=== PATIENT | female | born 1950 | race Caucasian/White ===

== ENCOUNTER 2017-07-27 10:34 | Inpatient (IN) | payer OTHER, MEDICARE ==
[~2017-07-27] VITALS: Ht 170.2 cm; Wt 86.2 kg
[2017-07-27 11:20] LABS: ABSOLUTE BASOPHIL COUNT 0 /CUMM (0.0-0.2); ABSOLUTE EOSINOPHIL COUNT 0.2 /CUMM (0.0-0.7); ABSOLUTE GRANULOCYTE CT 3.7 /CUMM (1.4-6.5); ABSOLUTE LYMPH COUNT 1.8 /CUMM (1.2-3.4); ABSOLUTE MONOCYTE COUNT 0.5 /CUMM (0.10-0.60); BASOPHIL % 0.4 % (0.0-2.0); EOSINOPHIL % 2.6 % (0-5); GRANULOCYTE % 59.8 % (42.2-75.2); HEMATOCRIT 28.2 % (37-47); MEAN CORPUSCULAR HGB 29.5 PG (27.0-31.0); MEAN CORPUSCULAR HGB CONC 33.7 G/DL (33.0-37.0); MEAN CORPUSCULAR VOLUME 87.7 FL (81.0-99.0); MEAN PLATELET VOLUME 8.6 FL (7.4-10.4); PLATELET COUNT 390 /CUMM (130-400); RBC DISTRIBUTION WIDTH 13.2 % (11.5-14.5); RED BLOOD CELL CT 3.22 /CUMM (4.20-5.40); WHITE BLOOD CELL COUNT 6.1 /CUMM (4.8-10.8)
--- NOTE | 2017-07-27 12:43 | ED DYSPNEA/ASTHMA COMPLAINT ---
History of Present Illness General Chief Complaint: General Adult Stated Complaint: SOB/WEAKNESS Source: patient, family Exam Limitations: no limitations Vital Signs & Intake/Output Vital Signs & Intake/Output Vital Signs Date Time Temp Pulse Resp B/P B/P Pulse O2 O2 Flow FiO2 Mean Ox Delivery Rate 07/27 1244 98 Room Air 07/27 1103 97.8 118 20 121/80 98 Room Air Allergies Coded Allergies: epinephrine (Intermediate, HEART RACES 07/27/17) Reconcile Medications Lisinopril 40 MG TABLET 1 TAB PO DAILY HEART (Reported) Omeprazole Magnesium (Prilosec Otc) 20 MG TABLET.DR 1 TAB PO DAILY GERD ( Reported) Venlafaxine HCl (Venlafaxine HCl ER) 75 MG CAP.ER.24H 1 CAP PO DAILY MENTAL HEALTH (Reported) Triage Note: PT TO ER WITH COMPLAINTS OF SOB ON EXERTION, FEELING WEAK, SKIN COLOR PALE , PT ALSO STATES THAT SHE HAS BEEN HAVING A LOT OF GERD AND NOTED THAT HER STOOL IS BLACK AND TARRY. PT HAD BLOOD WORK AT [facility] LAST WEEK THAT SHOWED SHE WAS ANEMIC AND THEY ARE SUPOSSED TO SCHEDULE A GI APPOINTMENT. STATES THAT SHE JUST KEEPS GETTING WEAKER Triage Nurses Notes Reviewed? yes Onset: Abrupt Duration: week(s):, constant, continues in ED Timing: recent history Severity: moderate, severe Activities at Onset: none HPI: 67-year-old female comes into emergency room for further evaluation of shortness of breath. She reports that she's been feeling increasingly weak with shortness of breath that has been going on for the past few weeks. She denies any chest pain. Denies any cough or mucus production shortness of breath is worse with exertion and better at rest. She denies any vomiting. She denies any syncopal episodes.. (Jose David Rodriguez) Past History Travel History Traveled to [place] past 21 day No Medical History Any Pertinent Medical History? 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 No (Jose David Rodriguez) Review of Systems Review of Systems Constitutional: Reports: no symptoms. EENTM: Reports: no symptoms. Respiratory: Reports: see HPI. Cardiovascular: Reports: no symptoms. GI: Reports: see HPI. Genitourinary: Reports: no symptoms. Musculoskeletal: Reports: no symptoms. Skin: Reports: no symptoms. Neurological/Psychological: Reports: no symptoms. Hematologic/Endocrine: Reports: no symptoms. Immunologic/Allergic: Reports: no symptoms. All Other Systems: Reviewed and Negative (Jose David Rodriguez) Physical Exam Physical Exam General Appearance: well developed/nourished, no apparent distress, alert Head: atraumatic, normal appearance Eyes: Bilateral: normal appearance, EOMI. Ears, Nose, Throat: normal ENT inspection, hearing grossly normal Neck: normal inspection Respiratory: normal breath sounds, no respiratory distress Cardiovascular: regular rate/rhythm Gastrointestinal: soft Rectal: heme positive stool, NO GROSS BLOOD Extremities: normal inspection Neurologic/Psych: awake, alert, oriented x 3, normal gait Skin: intact, normal color Core Measures ACS in differential dx? Yes CVA/TIA Diagnosis No Sepsis Present: No Sepsis Focused Exam Completed? No (Jose David Rodriguez) Progress Differential Diagnosis: asthma, AMI, bronchitis, costochondritis, CHF, COPD, musculoskeletal pain, pericarditis, pulmonary embolism, pneumonia, pneumothorax, rib fracture, unstable angina Plan of Care: Orders Procedure Date/time Status Heart Healthy Diet 07/27 D Active ED Holding Orders 07/27 1459 Active Vital Signs 07/27 1459 Active Code Status 07/27 1459 Active Patient Data 07/27 1444 Active URINALYSIS 07/27 1411 Complete Add-on Test (ER Only) 07/27 1229 Active D-DIMER 07/27 1110 Complete TROPONIN LEVEL 07/27 1106 Complete COMPREHENSIVE METABOLIC PANEL 07/27 1106 Complete CBC WITHOUT DIFFERENTIAL 07/27 1106 Complete EKG 07/27 1037 Active Laboratory Tests 07/27/17 1422: Urine Color YEL, Urine Clarity CLEAR, Urine pH 6.0, Ur Specific [place] 1.015, Urine Protein NEG, Urine Ketones NEG, Urine Nitrite NEG, Urine Bilirubin NEG, Urine Urobilinogen 0.2, Ur Leukocyte Esterase NEG, Ur Microscopic EXAM NOT REQUIRED, Urine Hemoglobin NEG, Urine Glucose NEG 07/27/17 1110: Anion Gap 13, Estimated GFR > 60, BUN/Creatinine Ratio 30.0 H, Glucose 103 H, Calcium 9.6, Total Bilirubin 0.3, AST 37 H, ALT 63 H, Alkaline Phosphatase 75, Troponin I < 0.01, Total Protein 6.5, Albumin 4.0, Globulin 2.5, Albumin/ Globulin Ratio 1.6, D-Dimer High Sensitivty < 200, CBC w Diff NO MAN DIFF REQ, RBC 3.22 L, MCV 87.7, MCH 29.5, RDW 13.2, MPV 8.6, Gran % 59.8, Lymphocytes % 29.4, Monocytes % 7.8, Eosinophils % 2.6, Basophils % 0.4, Absolute Granulocytes 3.7, Absolute Lymphocytes 1.8, Absolute Monocytes 0.5, Absolute Eosinophils 0.2, Absolute Basophils 0, PUBS MCHC 33.7 Diagnostic Imaging: Viewed by Me: Radiology Read. Discussed w/RAD: Radiology Read. Radiology Impression: PATIENT: BRAD ANDERSON PRESENT AGE : 67 PATIENT ACCOUNT NO: [id number] : 50 LOCATION: [facility] ORDERING PHYSICIAN: Jose David SHAW SERVICE DATE: 07/27/171301 EXAM TYPE: RAD - XRY-CHEST XRAY, TWO VIEWS EXAMINATION: XR CHEST CLINICAL INFORMATION: Shortness of breath COMPARISON: None TECHNIQUE: 2 views of the chest were obtained. FINDINGS: Heart size is within normal range. The descending course of the thoracic aorta is mildly tortuous. No consolidation or effusion. The visualized osseous arches appear intact. IMPRESSION: No acute process. DICTATED BY: Zulema Rowe MD DATE/TIME DICTATED:07/27/171328 CONTACT LENS TECHNICIAN:JOANNA DATE/ TIME TRANSCRIBED:07/27/171328 CONFIDENTIAL, DO NOT COPY WITHOUT APPROPRIATE AUTHORIZATION. <Electronically signed in Other Vendor System> SIGNED BY: Zulema Rowe MD 07/27/17 1724 Initial ED EKG: normal sinus rhythm, rate (85), nonspecific ST T wave chg (Yobany SHAW,Jose David) Departure Departure Disposition: STILL A PATIENT Condition: Stable Clinical Impression Primary Impression: Symptomatic anemia Secondary Impressions: Angina of effort, GI bleed Referrals: Christine WOODWARD,Danial Benoit (PCP/Family) Departure Forms: Customer Survey General Discharge Information Observation Note Spoke With: Bhargav Baird MD Physician Advisor Notified: DWAIN NEALKASSIDYLENNIE [address] Patient In: Non-ED OBS Care Area Rationale for Observation: My rational for observation is as follows . Patient will require further evaluation with cardiac telemetry. Serial troponins. Patient has shortness of breath on exertion that could be possible anginal equivalent pain. Cardiac consultation. Patient also has some symptomatic anemia with a new drop in her H &H. She has a positive guaiac and exam and may be experiencing upper intermittent GI bleeding. (Jose David Rodriguez) PA/SUPERVISOR NET MAKING Co-Sign Statement Statement: ED Attending supervision documentation- [X] I saw and evaluated the patient. I have also reviewed all the pertinent lab results and diagnostic results. I agree with the findings and the plan of care as documented in the PA's/SUPERVISOR NET MAKING's documentation. [X] I have reviewed the ED Record and agree with the PA's/SUPERVISOR NET MAKING's documentation. [] Additions or exceptions (if any) to the PAs/SUPERVISOR NET MAKING's note and plan are summarized below: [] (Emiliano WOODWARD,Analilia) Critical Care Note Critical Care Note Critical Care Time: non-applicable (Jose David Rodriguez)
[2017-07-27] MEDS ORDERED: LISINOPRIL40 M1 PO (12:58)
[2017-07-27] MEDS ORDERED: PRILOSEC OTC20 M1 PO (12:59)
[2017-07-27] MEDS ORDERED: VENLAFAXINE HCL75 M1 PO (12:59)
--- NOTE | 2017-07-27 13:33 | RADIOLOGY REPORT ---
EXAMINATION: XR CHEST CLINICAL INFORMATION: Shortness of breath COMPARISON: None TECHNIQUE: 2 views of the chest were obtained. FINDINGS: Heart size is within normal range. The descending course of the thoracic aorta is mildly tortuous. No consolidation or effusion. The visualized osseous arches appear intact. IMPRESSION: No acute process.
--- NOTE | 2017-07-27 15:03 | History & Physical ---
Shaun WOODWARD,Feliberto 07/27/17 1502: General Information and HPI History of Present Illness: Ms. Wilson is a 67-year-old female with past medical history of hypertension who presents with fatigue and shortness of breath. The patient first noticed on that she was getting short of breath on exertion especially going up stairs. She had a recent blood work that showed that she was anemic. Yesterday, the she then started noticing her stools were black but there was no blood in them. Today she started feeling dizzy, decreased stamina, and palpitations that was only relieved by laying down. She called her primary care doctor who recommended she come to the ER for further evaluation. Otherwise, the patient notes that she has heartburn 2-3 times a week and takes ranitidine with relief. She also started taking omeprazole on Thursday. She has also had a recent SPEP or respiratory illness. She reports good appetite. Her last colonoscopy was in 2014 it was normal. She did have an endoscopy 10 years ago that showed gastritis. She did receive a flu vaccine this year. No chest pain, nausea, vomiting, diarrhea, dysuria, fever, chills, recent travel. She does not have any gluten issues. She has never smoked and drinks 10 drinks per week. She does not use any drugs. She has a history of esophageal cancer in her mom. Allergies/Medications Allergies: Coded Allergies: epinephrine (Intermediate, HEART RACES 07/27/17) Home Med list Lisinopril 40 MG TABLET 1 TAB PO DAILY HEART (Reported) Omeprazole Magnesium (Prilosec Otc) 20 MG TABLET.DR 1 TAB PO DAILY GERD ( Reported) Venlafaxine HCl (Venlafaxine HCl ER) 75 MG CAP.ER.24H 1 CAP PO DAILY MENTAL HEALTH (Reported) Past History Travel History Traveled to [place] past 21 day No Medical History Neurological: NONE EENT: NONE Cardiovascular: hypertension Respiratory: NONE Gastrointestinal: NONE Hepatic: NONE Renal: NONE Musculoskeletal: NONE Psychiatric: NONE Endocrine: NONE Blood Disorders: anemia Cancer(s): 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 EENTM: Reports: no symptoms. Cardiovascular: Reports: no symptoms. Respiratory: Reports: no symptoms. GI: Reports: see HPI. Genitourinary: Reports: no symptoms. Musculoskeletal: Reports: no symptoms. Skin: Reports: no symptoms. Neurological/Psychological: Reports: no symptoms. Hematologic/Endocrine: Reports: see HPI. Immunologic/Allergic: Reports: no symptoms. All Other Systems: Reviewed and Negative Exam & Diagnostic Data Last 24 Hrs of Vital Signs/I&O Vital Signs Date Time Temp Pulse Resp B/P B/P Pulse O2 O2 Flow FiO2 Mean Ox Delivery Rate 07/27 1556 98.7 87 20 101/60 98 Room Air 07/27 1530 98.7 87 20 101/60 98 Room Air 07/27 1244 98 Room Air 07/27 1103 97.8 118 20 121/80 98 Room Air Intake & Output 07/27 1600 07/27 0800 07/27 0000 Intake Total 0 Output Total Balance 0 Intake, Oral 0 Patient 190 lb Weight Physical Exam General Appearance Alert, Oriented X3, Cooperative, No Acute Distress Skin No Rashes, No Breakdown, No Significant Lesion HEENT Atraumatic, PERRLA, EOMI, no palor Neck Supple Cardiovascular Regular Rate, Normal S1, Normal S2 Lungs Clear to Auscultation, Normal Air Movement Abdomen Normal Bowel Sounds, Soft, No Tenderness, No Hepatospenomegaly Neurological Normal Speech Extremities No Edema, Normal Pulses, No Tenderness/Swelling Last 24 Hrs of Labs/Rolando: Laboratory Tests 07/27/17 1659: Troponin I Pending 07/27/17 1422: Urine Color YEL, Urine Clarity CLEAR, Urine pH 6.0, Ur Specific [place] 1.015, Urine Protein NEG, Urine Ketones NEG, Urine Nitrite NEG, Urine Bilirubin NEG, Urine Urobilinogen 0.2, Ur Leukocyte Esterase NEG, Ur Microscopic EXAM NOT REQUIRED, Urine Hemoglobin NEG, Urine Glucose NEG 07/27/17 1110: Anion Gap 13, Estimated GFR > 60, BUN/Creatinine Ratio 30.0 H, Glucose 103 H, Calcium 9.6, Total Bilirubin 0.3, AST 37 H, ALT 63 H, Alkaline Phosphatase 75, Troponin I < 0.01, Total Protein 6.5, Albumin 4.0, Globulin 2.5, Albumin/ Globulin Ratio 1.6, D-Dimer High Sensitivty < 200, CBC w Diff NO MAN DIFF REQ, RBC 3.22 L, MCV 87.7, MCH 29.5, RDW 13.2, MPV 8.6, Gran % 59.8, Lymphocytes % 29.4, Monocytes % 7.8, Eosinophils % 2.6, Basophils % 0.4, Absolute Granulocytes 3.7, Absolute Lymphocytes 1.8, Absolute Monocytes 0.5, Absolute Eosinophils 0.2, Absolute Basophils 0, PUBS MCHC 33.7 Assessment/Plan Assessment: Ms. Wilson is a 67-year-old female with past medical history of hypertension who presents with fatigue and shortness of breath. On presentation, vital signs were T 97.8, HR 118, RR 20, BP 121/80, satting 90% on room air. Laboratories worsened in for white blood cells 6.1, hemoglobin 9.5, MCV 67.7, BUN 21, creatinine 0.7, calcium 9.6, TB 0.3, AST 37, ALT 63, alkaline phosphatase 75, troponin less than 0.01, tender negative, UA negative. Checks x- ray was negative for any acute processes. She'll be admitted to telemetry and treated for the following problem: 1. Subacute GI bleed #Subacute GI bleed: Patient has likely been bleeding slowly from the upper GI tract. She had previous gastritis. Etiology may be EtOH vs PUD. She has resultant mild tachycardia and anemia. We will consult GI for possible scope tomorrow. -Clear liquid diet tonight, nothing by mouth after midnight -EKG and troponins 3 -Repeat CBC at 2300 -IV pantoprazole -Type and screen #Chronic medical problems: -Continue home venlafaxine -Hold lisinopril DVT prophylaxis with Alps Clear liquid diet Full code As Ranked By This Provider Problem List: 1. GI bleed Core Measures/Misc (04/05) Acute Coronary Syndrome ACS Diagnosis: No Congestive Heart Failure Congestive Heart Failure Diagnosis No Cerebrovascular Accident CVA/TIA Diagnosis: No VTE (View Protocol) VTE Risk Factors Age>40 No Mechanical VTE Prophylaxis d/t N/A MechProphylax Ordered No VTE Pharm Prophylaxis d/t Medical Contraindication Sepsis (View protocol) Sepsis Present: No ThaischaseHollis 07/27/17 1741: Resident Review Statement Resident Statement: examined this patient, discussed with customer success intern, agreed with customer success intern, discussed with family, reviewed EMR data (avail), discussed with nursing , discussed with case mgmt, reviewed images, amended to note Other Findings: This is a 67-year-old female with past medical history significant for hypertension, GERD, alcoholic, presented to [facility] for evaluation of shortness of breath on exertion. Patient reports ongoing shortness of breath on minimal exertion for the past 1 week associated with generalized weakness and tired. Patient also reports being having black tarry stools for last 3 days. She followed up with PCP one week back and outpatient blood work showed up anemia. She denies any nausea, vomiting, abdominal pain, hematemesis, hematochezia. However reports black tarry stools. She denies any diarrhea however she was constipated on and off. Denies any weight loss. Last colonoscopy in 2014 was normal recommended to get after 10 YEARS. Endoscopy 10 years back was normal. Family history of esophageal cancer. She has history of GERD used to take Zantac. However she was started on omeprazole recently. She denies any chest pain, palpitations, shortness of breath at rest, respiratory symptoms, fever, chills, urinary symptoms. On presentation, vital signs were T 97.8, HR 118, RR 20, BP 121/80, satting 90% on room air. Lab white blood cells 6.1, hemoglobin 9.5, MCV 67.7, BUN 21, creatinine 0.7, calcium 9.6, TB 0.3, AST 37, ALT 63, alkaline phosphatase 75, troponin less than 0.01, tender negative, UA negative. Checks x-ray was negative for any acute processes. EKG showed sinus rhythm, rate 85, sinus rhythm, no ST-T wave changes however she was found to have nonspecific T-wave changes for which she will be monitored in telemetry floor --- Upper GI bleed/symptomatic anemia Patient presented with shortness of breath on exertion, generalized weakness, tiredness. Outpatient blood work showed up anemia. Vitals were stable at the time of admission except for tachycardia. Hemoglobin 9.7 hematocrit 28.2. BUN and creatinine were normal. Other labs were normal. Stool guaiac was positive in the emergency room. She will be admitted to telemetry for monitoring tachycardia/EKG changes. * Observation status given her symptomatic anemia * Place in observation in telemetry floor continuous telemetry monitoring * Type and screen * 2 large IV lines * C BC every 12 hours * GI consulted * Stool guaiac * Orthostatic vitals * Hold lisinopril * IV Protonix * Clear liquid tonight * Nothing by mouth after midnight for possible EGD in the a.m. Rule out ACS First set of troponin was negative. However EKG showed some nonspecific T-wave changes. She will be placed in observation in the telemetry floor for continuous telemetry monitoring. Serial troponin and EKG to rule out ACS. * Follow-up troponin and EKG 5 PM and 11 PM Hypertension on lisinopril at home will hold lisinopril for now Continue venlafaxine for mental health Full code DVT prophylaxis alps Clear liquid diet for now and nothing by mouth after midnight for EGD Pain pathway Bhargav Baird MD 07/27/17 2006: Attending MD Review Statement Attending Statement Attending MD Statement: examined this patient, discuss w/resident/PA/ETCHER APPRENTICE, agreed w/resident/PA/ETCHER APPRENTICE, reviewed EMR data (avail), amended to note Attending Assessment/Plan: The patient is a 67 yo female with h/o HTN who was referred to [facility] by her PCP (Dr. King) with new onset over last week of exertional dyspnea (1 flight). Bloodwork showed she had a new anemia. The patient did note some gastritis type symptoms and was initially taking ranitidine (later omeprazole) and did have episode of dark stool. No bright red blood per rectum or significant abdominal pain. She had a colonoscopy in 2015 here at [facility] that was not remarkable. She denied any fever, nausea, vomiting, diarrhea. No orthostatic symptoms. Physical Exam: HEENT: eyes- PERRLA, EOMI carlos- moist mucosa Neck: no JVD/bruits Chest: clear Cor: borderline tachy, reg rhythm nl S1, S2 w/o murm Abd: BS+, soft, NT, - masses or HSM Ext: no edema, pulses 2+ Neuro: alert & oriented x 3, non-focal Labs- as above Impression/Plan: #Anemia- c/w subacute blood loss anemia (normocytic) with brown heme positive stool and recent h/o gastritis symptoms and dark stool. Most likely UGI source with gastritis/PUD as possibilities. Is not orthostatic. Plan: Patient brought in as OBS patient- will follow bowel movements and serial H/H. Type & Screen for potential PRBC if H/H drops significantly. Review prior OP labs. #Gastrointestinal Bleeding- most likely upper GI source as noted above. Differential as above. Plan: Monitor for further bleeding. GI consult (Dr. Crowe notified)- possible EGD tomorrow with Dr. Zamarripa. IV Protonix, clear liquids tonight- NPO after midnight anticipating procedure. #Exertional Dyspnea- patient describes new onset of symptoms over last week, c/w development of anemia. EKG w/o acute changes. Troponin negative. Plan: Monitor on telemetry. Serial troponins. Cardiology eval- ? OP stress eventually. #HTN- BP good at present. Plan: Will follow - hold lisinopril at present.
[2017-07-27 15:56] VITALS: BP 101/60
--- NOTE | 2017-07-27 20:48 | Cons- Cardiology ---
General Information and HPI Consulting Request Date of Consult: 07/27/17 Requested By: Bhargav Baird MD History of Present Illness: Ms. Wilson is a 67 year old female with history of hypertension and alcohol abuse. She also has a family history of premature coronary artery disease. This patient was asked by her primary care physician to be evaluated in the ER for anemia and black appearing stools. She also has shortness of breath with exertion without orthopnea. She is fatigued with decreased stamina. She has been noticing an epigastric discomfort described as a dull burning sensation in the epigastric region without any clear exertional component to it. She denies any brackish reflux into her throat or mouth and TUMS appear to be effective only after about 30 minutes. She has lightheadedness and palpitations with evidence of tachycardia. Allergies/Medications Allergies: Coded Allergies: epinephrine (Intermediate, HEART RACES 07/27/17) Home Med List: Lisinopril 40 MG TABLET 1 TAB PO DAILY HEART (Reported) Omeprazole Magnesium (Prilosec Otc) 20 MG TABLET.DR 1 TAB PO DAILY GERD ( Reported) Venlafaxine HCl (Venlafaxine HCl ER) 75 MG CAP.ER.24H 1 CAP PO DAILY MENTAL HEALTH (Reported) Review of Systems Review of Systems: A review of systems is unremarkable. 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 Surgical History Surgical History: non-contributory Psychosocial History ETOH Use: denies use Illicit Drug Use: denies illicit drug use Exam & Diagnostic Data Vital Signs and I&O Vital Signs Date Time Temp Pulse Resp B/P B/P Pulse O2 O2 Flow FiO2 Mean Ox Delivery Rate 07/27 1907 98.0 107 17 118/82 97 Room Air 07/27 1556 98.7 87 20 101/60 98 Room Air 07/27 1530 98.7 87 20 101/60 98 Room Air 07/27 1244 98 Room Air 07/27 1103 97.8 118 20 121/80 98 Room Air Intake & Output 07/27 1600 07/27 0800 07/27 0000 07/26 1600 07/26 0000 Intake Total 0 Output Total Balance 0 Intake, Oral 0 Patient 190 lb Weight Physical Exam: General: WD/WN male in NAD; alert and oriented x 3 HEENT: NC/AT, PERRL, EOMI Neck: no JVD, no carotid bruit Heart: RRR w/o murmur Lungs: clear bilaterally ABdomen: soft, obese, NT, +ve bowel sounds Extremities: no edema Diagnostic Data EKG Results sinus rhythm with non-specific T wave inversions Assessment/Plan Assessment/Plan * I suspect that this patient has an esophagitis or perhaps worse PUD, likely related to alcohol abuse. Although she has risk factors for CAD her symptoms due have some atypical features. In consideration of her family history of premature CAD and hypertension I do recommend risk factor management and risk stratification with a treadmill nuclear stress test. * This patient is tachycardic. This may be related to dehydration, withdrawal symptoms or perhaps due to a low stroke volume in the setting of an alcoholic cardiomyopathy. Obtain an echocardiogram to assess her EF. * The patient's worn out feeling and exertional shortness of breath may be related to her anemia. Her tachycardia may also be related to anemia. Consult Acknowledgment - Thank you for your consult request.
[2017-07-27 22:58] LABS: ABSOLUTE BASOPHIL COUNT 0 /CUMM (0.0-0.2); ABSOLUTE EOSINOPHIL COUNT 0.1 /CUMM (0.0-0.7); ABSOLUTE GRANULOCYTE CT 6.8 /CUMM (1.4-6.5); ABSOLUTE MONOCYTE COUNT 0.6 /CUMM (0.10-0.60); BASOPHIL % 0.4 % (0.0-2.0); EOSINOPHIL % 1.2 % (0-5); GRANULOCYTE % 71.5 % (42.2-75.2); MEAN CORPUSCULAR HGB 29.5 PG (27.0-31.0); MEAN CORPUSCULAR HGB CONC 33.6 G/DL (33.0-37.0); MEAN CORPUSCULAR VOLUME 87.9 FL (81.0-99.0); MEAN PLATELET VOLUME 8.6 FL (7.4-10.4); PLATELET COUNT 376 /CUMM (130-400); RBC DISTRIBUTION WIDTH 13.9 % (11.5-14.5); RED BLOOD CELL CT 2.96 /CUMM (4.20-5.40)
[2017-07-27 23:00] LABS: WHITE BLOOD CELL COUNT 9.5 /CUMM (4.8-10.8)
[2017-07-28 06:10] LABS: ABSOLUTE BASOPHIL COUNT 0 /CUMM (0.0-0.2); ABSOLUTE EOSINOPHIL COUNT 0.2 /CUMM (0.0-0.7); ABSOLUTE GRANULOCYTE CT 5.4 /CUMM (1.4-6.5); ABSOLUTE LYMPH COUNT 3.7 /CUMM (1.2-3.4); ABSOLUTE MONOCYTE COUNT 0.7 /CUMM (0.10-0.60); BASOPHIL % 0.4 % (0.0-2.0); EOSINOPHIL % 2.4 % (0-5); GRANULOCYTE % 53.8 % (42.2-75.2); HEMATOCRIT 27.5 % (37-47); MEAN CORPUSCULAR HGB 29.2 PG (27.0-31.0); MEAN CORPUSCULAR HGB CONC 32.9 G/DL (33.0-37.0); MEAN CORPUSCULAR VOLUME 88.8 FL (81.0-99.0); MEAN PLATELET VOLUME 8.5 FL (7.4-10.4); PLATELET COUNT 437 /CUMM (130-400); RBC DISTRIBUTION WIDTH 13.7 % (11.5-14.5); WHITE BLOOD CELL COUNT 10.1 /CUMM (4.8-10.8)
[2017-07-28 07:25] VITALS: BP 129/63
--- NOTE | 2017-07-28 08:41 | PN- Housestaff ---
See Addendum Subjective Follow-up For: GI bleed Subjective: No overnight events. Patient complaining of headache this morning. Says she occasionally gets these. Fatigue is actually improved, patient was exercising in her room last night. No CP or SOB. Review of Systems Constitutional: Reports: no symptoms. EENTM: Reports: no symptoms. Cardiovascular: Reports: no symptoms. Respiratory: Reports: no symptoms. Gastrointestinal: Reports: see HPI. Genitourinary: Reports: no symptoms. Musculoskeletal: Reports: no symptoms. Skin: Reports: no symptoms. Neurological/Psychological: Reports: see HPI. Hematologic/Endocrine: Reports: no symptoms. Immunologic/Allergic: Reports: no symptoms. Objective Last 24 Hrs of Vital Signs/I&O Vital Signs Date Time Temp Pulse Resp B/P B/P Pulse O2 O2 Flow FiO2 Mean Ox Delivery Rate 07/28 0725 98.1 80 18 129/63 97 Room Air 07/28 0658 98.1 80 18 129/63 97 Room Air 07/28 0555 97.2 77 18 147/70 100 Room Air 07/27 1908 98.0 107 17 118/82 97 Room Air 07/27 1556 98.7 87 20 101/60 98 Room Air 07/27 1530 98.7 87 20 101/60 98 Room Air 07/27 1244 98 Room Air 07/27 1103 97.8 118 20 121/80 98 Room Air Intake & Output 07/28 1600 07/28 0800 07/28 0000 Intake Total Output Total Balance Patient 190 lb Weight Physical Exam General Appearance: Alert, Oriented X3, Cooperative, No Acute Distress Cardiovascular: Regular Rate, Normal S1, Normal S2 Lungs: Clear to Auscultation Abdomen: Normal Bowel Sounds, Soft, No Tenderness Extremities: No Edema, Normal Pulses, No Tenderness/Swelling Current Medications: Current Medications Sig/Lori Start time Last Medication Dose Route Stop Time Status Admin Acetaminophen 0 .STK-MED ONE 07/28 0358 DC PO Acetaminophen 650 MG Q6P PRN 07/27 1645 AC 07/28 PO 0357 Acetaminophen 1,000 MG Q6P PRN 07/27 164 AC IV Enoxaparin Sodium 40 MG DAILY 07/28 1000 CAN SC Lisinopril 40 MG DAILY 07/28 1000 CAN PO Omeprazole 40 MG BID 07/27 2200 CAN PO Pantoprazole Sodium 0 .STK-MED ONE 07/27 1842 DC IV Pantoprazole Sodium 40 MG DAILY 07/27 1745 AC 07/27 IV 1840 Venlafaxine HCl 75 MG DAILY 07/28 1000 AC PO Last 24 Hrs of Lab/Rolando Results Last 24 Hrs of Labs/Mics: Laboratory Tests 07/28/17 0553: Anion Gap 12, Estimated GFR > 60, BUN/Creatinine Ratio 31.4 H, CBC w Diff NO MAN DIFF REQ, RBC 3.10 L, MCV 88.8, MCH 29.2, RDW 13.7, MPV 8.5, Gran % 53.8, Lymphocytes % 36.2, Monocytes % 7.2, Eosinophils % 2.4, Basophils % 0.4, Absolute Granulocytes 5.4, Absolute Lymphocytes 3.7 H, Absolute Monocytes 0.7 H, Absolute Eosinophils 0.2, Absolute Basophils 0, PUBS MCHC 32.9 L 07/27/17 2248: Troponin I < 0.01, CBC w Diff NO MAN DIFF REQ, RBC 2.96 L, MCV 87.9, MCH 29.5, RDW 13.9, MPV 8.6, Gran % 71.5, Lymphocytes % 20.8, Monocytes % 6.1, Eosinophils % 1.2, Basophils % 0.4, Absolute Granulocytes 6.8 H, Absolute Lymphocytes 2.0, Absolute Monocytes 0.6, Absolute Eosinophils 0.1, Absolute Basophils 0, PUBS MCHC 33.6 07/27/17 1659: Troponin I < 0.01 07/27/17 1422: Urine Color YEL, Urine Clarity CLEAR, Urine pH 6.0, Ur Specific [place] 1.015, Urine Protein NEG, Urine Ketones NEG, Urine Nitrite NEG, Urine Bilirubin NEG, Urine Urobilinogen 0.2, Ur Leukocyte Esterase NEG, Ur Microscopic EXAM NOT REQUIRED, Urine Hemoglobin NEG, Urine Glucose NEG 07/27/17 1110: Anion Gap 13, Estimated GFR > 60, BUN/Creatinine Ratio 30.0 H, Glucose 103 H, Calcium 9.6, Total Bilirubin 0.3, AST 37 H, ALT 63 H, Alkaline Phosphatase 75, Troponin I < 0.01, Total Protein 6.5, Albumin 4.0, Globulin 2.5, Albumin/ Globulin Ratio 1.6, D-Dimer High Sensitivty < 200, CBC w Diff NO MAN DIFF REQ, RBC 3.22 L, MCV 87.7, MCH 29.5, RDW 13.2, MPV 8.6, Gran % 59.8, Lymphocytes % 29.4, Monocytes % 7.8, Eosinophils % 2.6, Basophils % 0.4, Absolute Granulocytes 3.7, Absolute Lymphocytes 1.8, Absolute Monocytes 0.5, Absolute Eosinophils 0.2, Absolute Basophils 0, PUBS MCHC 33.7 Assessment/Plan Assessment: Ms. Wilson is a 67-year-old female with past medical history of hypertension who presents with fatigue and shortness of breath. On presentation, vital signs were T 97.8, HR 118, RR 20, BP 121/80, satting 90% on room air. Laboratories worsened in for white blood cells 6.1, hemoglobin 9.5, MCV 67.7, BUN 21, creatinine 0.7, calcium 9.6, TB 0.3, AST 37, ALT 63, alkaline phosphatase 75, troponin less than 0.01, tender negative, UA negative. Checks x- ray was negative for any acute processes. She'll be admitted to telemetry and treated for the following problem: 1. Subacute GI bleed 2. Dyspnea #Subacute GI bleed: Patient has likely been bleeding slowly from the upper GI tract. She had previous gastritis. Etiology may be EtOH vs PUD. Alcohol level at admission was negative. She has resultant mild tachycardia and anemia. GI will likely scope her today after cardiac clearance. Hemoglobin has been stable. Orthostatic vitals negative. -Nothing by mouth until endoscopy -IV pantoprazole -Appreciate GI recommendations #Dyspnea: Patient was presenting with shortness of breath. This is most likely related to her anemia. EKG and troponins 3 were negative. Cardiology is recommending outpatient stress test. -Appreciate cardiology recommendations -Cardiac clearance requested by GI #Chronic medical problems: -Continue home venlafaxine -Hold lisinopril DVT prophylaxis with Alps Clear liquid diet Full code Problem List: 1. GI bleed Pain Ratin Pain Location: no pain Pain Goal: Remain pain free Pain Plan: see a/p Tomorrow's Labs & Rationales: CBC
--- NOTE | 2017-07-28 09:33 | PN- Cardiology ---
Subjective Subjective: * Patient is doing better without chest discomfort, shortness of breath or lightheadedness. She has a headache. Objective Vital Signs and I&Os Vital Signs Date Time Temp Pulse Resp B/P B/P Pulse O2 O2 Flow FiO2 Mean Ox Delivery Rate 07/28 0725 98.1 80 18 129/63 97 Room Air 07/28 0658 98.1 80 18 129/63 97 Room Air 07/28 0555 97.2 77 18 147/70 100 Room Air 07/27 1908 98.0 107 17 118/82 97 Room Air 07/27 1556 98.7 87 20 101/60 98 Room Air 07/27 1530 98.7 87 20 101/60 98 Room Air 07/27 1244 98 Room Air 07/27 1103 97.8 118 20 121/80 98 Room Air Intake & Output 07/28 1600 07/28 0800 07/28 0000 07/27 1600 07/27 0800 07/27 0000 Intake Total 0 Output Total Balance 0 Intake, Oral 0 Patient 190 lb 190 lb Weight Physical Exam: General: WD/WN male in NAD; alert and oriented x 3 HEENT: NC/AT, PERRL, EOMI Neck: no JVD, no carotid bruit Heart: RRR w/o murmur Lungs: clear bilaterally ABdomen: soft, obese, NT, +ve bowel sounds Extremities: no edema Assessment/Plan Assessment/Plan * This patient is cleared to undergo an endoscopy and colonoscopy. I do recommend an echocardiogram and a stress test can be done as an outpatient. * Heart rate is better controlled today. Continue telemetry? No
--- NOTE | 2017-07-28 10:48 | Cons- Gastroenterology ---
General Information and HPI Consulting Request Date of Consult: 07/28/17 Requested By: Bhargav Baird MD Reason for Consult: 1. Acute blood loss anemia 2. Melena 3. Gastroesophageal reflux 4. Epigastric pain Source of Information: patient, Electronic Medical Record Exam Limitations: no limitations History of Present Illness: Patient is a 67-year-old female who presents with a 3 day history of melenic stools as well as several week history of intermittent epigastric, subxiphoid pain. She uses NSAIDs intermittently for headaches but denies chronic use of NSAIDs or ASA. Patient reports that she had recent blood work that showed that she was anemic. Over the past several days prior to admission she had noted increasing shortness of breath, weakness, and fatigue which interfered with her ability to perform her activities of daily living. She had recently seen her PCP and and had blood work done. She was told that she was anemic. She had a colonoscopy by a Dr. Mcwilliams in 2014 which was unremarkable. She had a remote history of gastritis diagnosed by EGD many years ago. When she reported that she had fatigue and weakness as well as shortness of breath and palpitations and was unable to climb stairs without difficulty she called her PCP who advised her to come to the ED. Allergies/Medications Allergies: Coded Allergies: epinephrine (Intermediate, HEART RACES 07/27/17) Home Med List: Lisinopril 40 MG TABLET 1 TAB PO DAILY HEART (Reported) Omeprazole Magnesium (Prilosec Otc) 20 MG TABLET.DR 1 TAB PO DAILY GERD ( Reported) Venlafaxine HCl (Venlafaxine HCl ER) 75 MG CAP.ER.24H 1 CAP PO DAILY MENTAL HEALTH (Reported) Current Medications: Current Medications Sig/Lori Start time Last Medication Dose Route Stop Time Status Admin Acetaminophen 0 .STK-MED ONE 07/28 0849 DC IV Acetaminophen 0 .STK-MED ONE 07/28 0358 DC PO Acetaminophen 650 MG Q6P PRN 07/27 1645 DC 07/28 PO 0357 Acetaminophen 1,000 MG Q6P PRN 07/27 1645 AC 07/28 IV 0848 Enoxaparin Sodium 40 MG DAILY 07/28 1000 CAN SC Lisinopril 40 MG DAILY 07/28 1000 CAN PO Omeprazole 40 MG BID 07/27 2200 CAN PO Pantoprazole Sodium 0 .STK-MED ONE 07/27 1842 DC IV Pantoprazole Sodium 40 MG DAILY 07/27 1745 AC 07/28 IV 1039 Venlafaxine HCl 75 MG DAILY 07/28 1000 AC 07/28 PO 1039 Past History Travel History Traveled to [place] past 21 day No Medical History Neurological: NONE EENT: NONE Cardiovascular: hypertension Respiratory: NONE Gastrointestinal: NONE Hepatic: NONE Renal: NONE Musculoskeletal: NONE Psychiatric: NONE Endocrine: NONE Blood Disorders: anemia Cancer(s): NONE [employer]/Reproductive: NONE Surgical History Surgical History: non-contributory Psychosocial History Smoking Status: Never Smoked ETOH Use: denies use Illicit Drug Use: denies illicit drug use Review of Systems Review of Systems Constitutional: Reports: see HPI, weakness. EENTM: Denies: no symptoms. Cardiovascular: Reports: see HPI, palpitations. Respiratory: Reports: see HPI. GI: Reports: see HPI, abdominal pain, melena. Genitourinary: Denies: no symptoms. Musculoskeletal: Denies: no symptoms. Skin: Denies: no symptoms. Neurological/Psychological: Reports: see HPI. Hematologic/Endocrine: Denies: no symptoms. Exam & Diagnostic Data Vital Signs and I&O Vital Signs Date Time Temp Pulse Resp B/P B/P Pulse O2 O2 Flow FiO2 Mean Ox Delivery Rate 07/28 0725 98.1 80 18 129/63 97 Room Air 07/28 0658 98.1 80 18 129/63 97 Room Air 07/28 0555 97.2 77 18 147/70 100 Room Air 07/27 1908 98.0 107 17 118/82 97 Room Air 07/27 1556 98.7 87 20 101/60 98 Room Air 07/27 1530 98.7 87 20 101/60 98 Room Air 07/27 1244 98 Room Air 07/27 1103 97.8 118 20 121/80 98 Room Air Intake & Output 07/28 1600 07/28 0400 07/27 1600 07/27 0400 07/26 1600 07/26 0400 Intake Total 0 Output Total Balance 0 Intake, Oral 0 Patient 190 lb 190 lb Weight Physical Exam General Appearance: well developed/nourished, no apparent distress, alert, awake Head: atraumatic, normal appearance Eyes: Bilateral: normal appearance. Ears, Nose, Throat: hearing grossly normal Neck: normal inspection, supple, full range of motion Respiratory: normal breath sounds, lungs clear Cardiovascular: regular rate/rhythm, Normal S1 and S2 without rub, murmur or gallop Gastrointestinal: normal bowel sounds, soft, non-tender, no organomegaly Neurologic/Psych: awake, alert, oriented x 3 Cranial Nerves: cranial nerves II-XII grossly normal Skin: intact, warm/dry Assessment/Plan Assessment/Recommendations: ASSESSMENT: 1. Acute blood loss anemia 2. Melenic stool 3. History of gastroesophageal reflux disease 4. Epigastric pain 5. Nonspecific ST-T wave changes on EKG RECOMMENDATIONS: 1. Protonix 40 mg IV twice a day 2. Serial H&H, q 4-6 hours for at least 24 hours. 3. Patient to have urgent EGD. Risks and benefits have been discussed with patient. Potential complications have been discussed and all questions have been answered. Patient agrees to the procedure. 4. Patient has been, cleared by cardiology for upper endoscopy. 5. 2 large bore IV, IV fluid, stric I/O Consult Acknowledgment - Thank you for your consult request.
--- NOTE | 2017-07-28 13:07 | Proc Note Endoscopy ---
Endoscopy Procedure Medical History: unchanged Mental Status: alert/oriented Heart/Lung Eval Prior to Sedation: within normal limits Candidate for Sedation? Yes Procedure Date: 07/28/17 Procedure Type: EGD with biopsy and control of bleeding [facility] [employer] Labor: Bhargav Baird MD ASA Classification: III Indications: 1. Acute blood loss anemia 2. Melena 3. Epigastric pain Instrument: diagnostic gastroscope Meds Received: MAC Patient's Tolerance: good Complications: none Extent Reached: second part of duodenum Procedure: Note: Informed consent was obtained prior to procedure. Risks and benefits of procedure were discussed with patient. Potential complications discussed included perforation, bleeding, abdominal pain, and adverse reaction to medications. It was explained that iany or all of these complications could result in the need for extended hospitalization, emergency surgery, transfusion of packed red blood cells (with the risk of HIV or hepatitis virus), intubation with mechanical ventilation, and possible need for antibiotics. It was further explained that an existing tumor polyp or mucosal abnormality might not be identified at the time of the procedure thus resulting in a missed opportunity for early diagnosis and treatment of a gastrointestinal malignancy or disease with possible interval development of a gastrointestinal cancer or other disease with possible worsening of clinical condition in the interval between endoscopies. It was also discussed that complications are not limited to those listed above. Possible alternatives to endoscopic treatment or evaluation were discussed. All questions were answered. Continuous EKG and blood pressure monitors were attached. Supplemental oxygen was provided with O2 Sat monitoring. Patient was placed in the left lateral decubitus position. A surgical timeout was performed. All persons in the room were identified. All concerns were expressed and answered. A bite block was placed in the mouth and sedation was administered by anesthesia and titrated to comfort prior to starting the procedure. The Olympus upper endoscope was advanced under direct vision to the level of the third portion of the duodenum. Esophagus: The esophagus had a normal mucosal vascular pattern throughout its entirety. The GE junction was identified and was normal. The Z line was nondisplaced. Stomach: The stomach had a normal mucosal and vascular pattern throughout its entirety. Retroflexed view of the cardiofundic region revealed a normal mucosal and vascular pattern. There were normal rugae and normal distensibility. The pylorus was patent and easily intubated. Biopsies were obtained from the antrum , angularis, gastric body and lesser curvature to rule out H. Pylori. Duodenum: The duodenum was fully examined from bulb down to the third portion. There was a normal mucosal vascular pattern throughout the second portion of the duodenum. At the duodenal C-sweep. There was marked erythema. There appeared to be a nonobstructing stricture at D1 at the posterior bulb with a 8 mm ulcer with marked surrounding edema and active oozing. 6 mL of 1-10,000 epinephrine was injected in the surrounding mucosa but not within the ulcer crater itself. There is appropriate blanching. Using BiCAP electrocautery. The area of oozing was treated with complete control of bleeding. With the endoscope in the forward-viewing position, it was slowly withdrawn and all areas were re-inspected and findings are as described previously. Patient tolerated the procedure well. EBL: Minimal Specimens Removed: antrum, angularis, gastric body and lesser curvature to rule out H. Pylori. Findings: Duodenal ulcer with active oozing at duodenal C-sweep Impression: Duodenal ulcer with active oozing at duodenal C-sweep Recommendations: 1. Patient for admission to monitored bed given active oozing at time of endoscopy 2. Patient may start clear liquid diet would maintain on clear liquids until a.m. and then would advance diet very gradually 3. Continue serial H&H. Would obtain H&H every 6 hours for at least 24 hours 4. Continue IV Protonix for at least 72 hours given active oozing at time of endoscopy 5. Await pathology
[2017-07-28 14:40] LABS: ABSOLUTE BASOPHIL COUNT 0 /CUMM (0.0-0.2); ABSOLUTE EOSINOPHIL COUNT 0.1 /CUMM (0.0-0.7); ABSOLUTE GRANULOCYTE CT 11.3 /CUMM (1.4-6.5); ABSOLUTE LYMPH COUNT 1.7 /CUMM (1.2-3.4); ABSOLUTE MONOCYTE COUNT 0.8 /CUMM (0.10-0.60); BASOPHIL % 0.1 % (0.0-2.0); EOSINOPHIL % 0.6 % (0-5); HEMATOCRIT 26.5 % (37-47); MEAN CORPUSCULAR HGB 29.3 PG (27.0-31.0); MEAN CORPUSCULAR HGB CONC 33.3 G/DL (33.0-37.0); MEAN CORPUSCULAR VOLUME 87.8 FL (81.0-99.0); MEAN PLATELET VOLUME 7.9 FL (7.4-10.4); PLATELET COUNT 402 /CUMM (130-400); RED BLOOD CELL CT 3.02 /CUMM (4.20-5.40); WHITE BLOOD CELL COUNT 13.9 /CUMM (4.8-10.8)
[2017-07-28 14:41] LABS: GRANULOCYTE % 81.2 % (42.2-75.2)
[2017-07-28 16:07] VITALS: BP 159/76
[2017-07-28 17:32] VITALS: BP 150/80
[2017-07-28 20:52] LABS: ABSOLUTE BASOPHIL COUNT 0 /CUMM (0.0-0.2); ABSOLUTE EOSINOPHIL COUNT 0.1 /CUMM (0.0-0.7); ABSOLUTE GRANULOCYTE CT 5.8 /CUMM (1.4-6.5); ABSOLUTE LYMPH COUNT 1.9 /CUMM (1.2-3.4); ABSOLUTE MONOCYTE COUNT 0.4 /CUMM (0.10-0.60); BASOPHIL % 0.4 % (0.0-2.0); EOSINOPHIL % 1.1 % (0-5); GRANULOCYTE % 70.5 % (42.2-75.2); HEMATOCRIT 24.9 % (37-47); MEAN CORPUSCULAR HGB 28.7 PG (27.0-31.0); MEAN CORPUSCULAR HGB CONC 32.2 G/DL (33.0-37.0); MEAN CORPUSCULAR VOLUME 89.2 FL (81.0-99.0); MEAN PLATELET VOLUME 9.1 FL (7.4-10.4); PLATELET COUNT 349 /CUMM (130-400); RBC DISTRIBUTION WIDTH 14.1 % (11.5-14.5); RED BLOOD CELL CT 2.79 /CUMM (4.20-5.40); WHITE BLOOD CELL COUNT 8.2 /CUMM (4.8-10.8)
[2017-07-28 22:03] VITALS: BP 140/78
[2017-07-29 03:14] LABS: ABSOLUTE BASOPHIL COUNT 0 /CUMM (0.0-0.2); ABSOLUTE EOSINOPHIL COUNT 0.2 /CUMM (0.0-0.7); ABSOLUTE GRANULOCYTE CT 4.1 /CUMM (1.4-6.5); ABSOLUTE LYMPH COUNT 2.7 /CUMM (1.2-3.4); ABSOLUTE MONOCYTE COUNT 0.6 /CUMM (0.10-0.60); BASOPHIL % 0.6 % (0.0-2.0); EOSINOPHIL % 3.1 % (0-5); GRANULOCYTE % 52.7 % (42.2-75.2); HEMATOCRIT 24.2 % (37-47); MEAN CORPUSCULAR HGB 29.1 PG (27.0-31.0); MEAN CORPUSCULAR HGB CONC 32.7 G/DL (33.0-37.0); MEAN CORPUSCULAR VOLUME 88.8 FL (81.0-99.0); MEAN PLATELET VOLUME 8.6 FL (7.4-10.4); PLATELET COUNT 353 /CUMM (130-400); RBC DISTRIBUTION WIDTH 14.5 % (11.5-14.5); RED BLOOD CELL CT 2.73 /CUMM (4.20-5.40); WHITE BLOOD CELL COUNT 7.7 /CUMM (4.8-10.8)
[2017-07-29 06:53] VITALS: BP 126/74
--- NOTE | 2017-07-29 07:36 | PN- Housestaff ---
See Addendum Subjective Follow-up For: Duodenal ulcer Tele-Events Since Last Visit: NSR 70-90 Subjective: No overnight events. Patient complaining of a headache again this morning. She says the fiorocet worked well yesterday. Otherwise, we discussed her alcohol intake and reducing it to potentially prevent further ulcers in the future. No CP, SOB, or other complaints. Review of Systems Constitutional: Reports: no symptoms. EENTM: Reports: no symptoms. Cardiovascular: Reports: no symptoms. Respiratory: Reports: no symptoms. Gastrointestinal: Reports: no symptoms. Genitourinary: Reports: no symptoms. Musculoskeletal: Reports: no symptoms. Skin: Reports: no symptoms. Neurological/Psychological: Reports: no symptoms. Hematologic/Endocrine: Reports: no symptoms. Immunologic/Allergic: Reports: no symptoms. Objective Last 24 Hrs of Vital Signs/I&O Vital Signs Date Time Temp Pulse Resp B/P B/P Pulse O2 O2 Flow FiO2 Mean Ox Delivery Rate 07/29 0653 97.7 71 18 126/74 97 Room Air 07/28 2203 98.3 80 18 140/78 98 07/28 1732 97.4 100 20 150/80 96 07/28 1607 98.4 98 18 159/76 98 Room Air 07/28 1606 98.4 98 18 159/76 98 Room Air 07/28 1417 97.1 82 18 132/72 99 Room Air 07/28 1148 97.1 74 18 126/70 98 Room Air Intake & Output 07/29 0800 07/29 0000 07/28 1600 Intake Total 200 480 100 Output Total 350 Balance -150 480 100 Intake, Oral 200 480 100 Number 0 Bowel Movements Output, Urine 350 Patient 190 lb Weight Weight Reported by Patient Measurement Method Physical Exam General Appearance: Alert, Oriented X3, Cooperative, No Acute Distress Skin: No Rashes, No Breakdown, No Significant Lesion Cardiovascular: Regular Rate, Normal S1, Normal S2 Lungs: Clear to Auscultation Abdomen: Normal Bowel Sounds, Soft, No Tenderness Extremities: No Edema Current Medications: Current Medications Sig/Lori Start time Last Medication Dose Route Stop Time Status Admin Acetaminophen 650 MG ONCE ONE 07/29 0045 DC 07/29 PO 07/29 0046 0049 Acetaminophen 0 .STK-MED ONE 07/28 0849 DC IV Acetaminophen 650 MG Q6P PRN 07/27 1645 DC 07/28 PO 0357 Acetaminophen 1,000 MG Q6P PRN 07/27 1645 AC 07/28 IV 0848 Acetaminophen/ 1 TAB ONCE ONE 07/29 0730 UNVr Butalbital/Caffeine PO 07/29 0731 Acetaminophen/ 1 TAB ONCE ONE 07/28 1415 DC 07/28 Butalbital/Caffeine PO 07/28 1416 1422 Chlorhexidine 1 GM .STK-MED ONE 07/28 1335 DC Gluconate TOP 07/28 1336 Epinephrine 1 MG .STK-MED ONE 07/28 1335 DC SC 07/28 1336 Melatonin 5 MG AT BEDTIME 07/28 2200 DC 07/28 PO 2109 Pantoprazole Sodium 40 MG Q12 07/29 1000 UNVr IV Pantoprazole Sodium 40 MG BID 07/28 220 DC IV Pantoprazole Sodium 40 MG Q8 07/28 2200 DC 07/29 IV 0527 Pantoprazole Sodium 40 MG DAILY 07/27 1745 DC 07/28 IV 1039 Ramelteon 8 MG AT BEDTIME 07/29 220 UNVr PO Ramelteon 8 MG ONCE ONE 07/28 2215 DC 07/28 PO 07/28 2216 2219 Sodium Chloride 10 ML .STK-MED ONE 07/28 1335 DC IV 07/28 1336 Venlafaxine HCl 75 MG DAILY 07/28 1000 AC 07/28 PO 1039 Last 24 Hrs of Lab/Rolando Results Last 24 Hrs of Labs/Mics: Laboratory Tests 07/29/17 0628: CBC w Diff Pending, WBC Pending, RBC Pending, Hgb Pending, Hct Pending, MCV Pending, MCH Pending, RDW Pending, Plt Count Pending, MPV Pending, PUBS MCHC Pending 07/29/17 0220: CBC w Diff NO MAN DIFF REQ, RBC 2.73 L, MCV 88.8, MCH 29.1, RDW 14.5, MPV 8.6, Gran % 52.7, Lymphocytes % 35.3, Monocytes % 8.3, Eosinophils % 3.1, Basophils % 0.6, Absolute Granulocytes 4.1, Absolute Lymphocytes 2.7, Absolute Monocytes 0.6 , Absolute Eosinophils 0.2, Absolute Basophils 0, PUBS MCHC 32.7 L 07/28/17 1945: CBC w Diff NO MAN DIFF REQ, RBC 2.79 L, MCV 89.2, MCH 28.7, RDW 14.1, MPV 9.1, Gran % 70.5, Lymphocytes % 22.9, Monocytes % 5.1, Eosinophils % 1.1, Basophils % 0.4, Absolute Granulocytes 5.8, Absolute Lymphocytes 1.9, Absolute Monocytes 0.4 , Absolute Eosinophils 0.1, Absolute Basophils 0, PUBS MCHC 32.2 L 07/28/17 1434: CBC w Diff NO MAN DIFF REQ, RBC 3.02 L, MCV 87.8, MCH 29.3, RDW 14.0, MPV 7.9, Gran % 81.2 H, Lymphocytes % 12.2 L, Monocytes % 5.9, Eosinophils % 0.6, Basophils % 0.1, Absolute Granulocytes 11.3 H, Absolute Lymphocytes 1.7, Absolute Monocytes 0.8 H, Absolute Eosinophils 0.1, Absolute Basophils 0, PUBS MCHC 33.3 Assessment/Plan Assessment: Ms. Wilson is a 67-year-old female with past medical history of hypertension who presents with fatigue and shortness of breath. On presentation, vital signs were T 97.8, HR 118, RR 20, BP 121/80, satting 90% on room air. Laboratories worsened in for white blood cells 6.1, hemoglobin 9.5, MCV 67.7, BUN 21, creatinine 0.7, calcium 9.6, TB 0.3, AST 37, ALT 63, alkaline phosphatase 75, troponin less than 0.01, tender negative, UA negative. Checks x- ray was negative for any acute processes. She'll be admitted to telemetry and treated for the following problem: 1. Duodenal ulcer with active bleeding 2. Dyspnea 3. Headache #Duodenal ulcer with active bleeding: Endoscopy revealed a bleeding duodenal ulcer.. Etiology may be EtOH vs PUD. Alcohol level at admission was negative. However, I discussed the patient reducing her alcohol intake and avoiding NSAIDs. Hemoglobin has been slightly downtrending but remains above 7. -Clear liquid diet. Advance as tolerated -IV pantoprazole for 72 hours (discharge Thursday if stable) -Appreciate GI recommendations -CBC every morning #Dyspnea: Patient was presenting with shortness of breath. This is most likely related to her anemia. EKG and troponins 3 were negative. Cardiology is recommending outpatient stress test. No further telemetry needed. -Appreciate cardiology recommendations -Patient can now be transferred to [facility] #Headache: Patient has been complaining of headaches. She has a history of headaches for a few usually takes Excedrin. This has responded well to Fioricet. She was told to avoid NSAIDs in the future. She should seek a referral to a neurologist as an outpatient after discharge. -Outpatient neurology referral #Chronic medical problems: -Continue home venlafaxine -Hold lisinopril DVT prophylaxis with Alps Clear liquid diet Full code Problem List: 1. Duodenal ulcer Pain Ratin Pain Location: no pain Pain Goal: Remain pain free Pain Plan: see a/p Tomorrow's Labs & Rationales: cbc
[2017-07-29 07:49] LABS: ABSOLUTE BASOPHIL COUNT 0 /CUMM (0.0-0.2); ABSOLUTE EOSINOPHIL COUNT 0.1 /CUMM (0.0-0.7); ABSOLUTE GRANULOCYTE CT 3.4 /CUMM (1.4-6.5); ABSOLUTE LYMPH COUNT 1.8 /CUMM (1.2-3.4); ABSOLUTE MONOCYTE COUNT 0.5 /CUMM (0.10-0.60); BASOPHIL % 0.6 % (0.0-2.0); EOSINOPHIL % 2.5 % (0-5); GRANULOCYTE % 58.3 % (42.2-75.2); HEMATOCRIT 23.5 % (37-47); MEAN CORPUSCULAR HGB 29.7 PG (27.0-31.0); MEAN CORPUSCULAR HGB CONC 33.7 G/DL (33.0-37.0); MEAN CORPUSCULAR VOLUME 88.1 FL (81.0-99.0); MEAN PLATELET VOLUME 8.7 FL (7.4-10.4); PLATELET COUNT 324 /CUMM (130-400); RBC DISTRIBUTION WIDTH 14.4 % (11.5-14.5); RED BLOOD CELL CT 2.67 /CUMM (4.20-5.40); WHITE BLOOD CELL COUNT 5.9 /CUMM (4.8-10.8)
--- NOTE | 2017-07-29 08:55 | PN- Gastroenterology ---
Assessment/Plan Assessment/Recommendations: ASSESSMENT: 1. Acute blood loss anemia due to duodenal ulcer with active bleeding 2. Chronic Use NSAIDs 3. Chronic Alcohol Use 4. Chronic Headaches -- ? migraine headaches (generally right frontal) versus sinus 5. Nonspecific ST-T wave changes on EKG RECOMMENDATIONS: 1. Protonix 40 mg IV twice a day for another 48 hours 2. Serial H&H, daily, monitor for clinical signs of recurrent or ongoing GI bleeding. 3. Advance diet to regular 4. Await Pathology 5. Discussed with patient need to severely curtail alcohol use as well as to completely avoid use of ASA and NSAIDs. Discussed with patient that present migraine headaches rather than sinus headaches. I suggested that at discharge she be evaluated by a neurologist. I explained to her that there are medications that she can take that can prevent headaches and that there are medication she can take should she have a headache that do not contain aspirin or NSAIDs. Subjective Subjective: Patient complains of a headache. No melena or bright red blood per rectum. No nausea, vomiting or abdominal pain. No fever or shaking chills. Patient has frequent headaches. Reports takes Benadryl nightly for insomnia and takes both ASA and advil/aleve or other NSAID daily for headaches. Also drinks 2+ large glasses wine daily. Objective Vital Signs and I&Os Vital Signs Date Time Temp Pulse Resp B/P B/P Pulse O2 O2 Flow FiO2 Mean Ox Delivery Rate 07/29 0653 97.7 71 18 126/74 97 Room Air 07/28 2203 98.3 80 18 140/78 98 07/28 1732 97.4 100 20 150/80 96 07/28 1607 98.4 98 18 159/76 98 Room Air 07/28 1606 98.4 98 18 159/76 98 Room Air 07/28 1417 97.1 82 18 132/72 99 Room Air 07/28 1148 97.1 74 18 126/70 98 Room Air Intake & Output 07/29 1600 07/29 0400 07/28 1600 07/28 0400 07/27 1600 07/27 0400 Intake Total 200 480 100 0 Output Total 350 Balance -150 480 100 0 Intake, Oral 200 480 100 0 Number 0 Bowel Movements Output, Urine 350 Patient 190 lb 190 lb 190 lb Weight Weight Reported by Patient Measurement Method Physical Exam General Appearance: well developed/nourished, no apparent distress, alert, awake Head: normal appearance Respiratory: normal breath sounds, lungs clear Cardiovascular: regular rate/rhythm, Normal S1 and S2 Abdomen: normal bowel sounds, soft, non-tender, no organomegaly Extremities: normal inspection, no edema Neurologic/Psychiatric: oriented x 3, normal mood/affect Skin: intact, normal color, warm/dry Current Medications: Current Medications Sig/Lori Start time Last Medication Dose Route Stop Time Status Admin Acetaminophen 650 MG ONCE ONE 07/29 0045 DC 07/29 PO 07/29 0046 0049 Acetaminophen 1,000 MG Q6P PRN 07/27 1645 AC 07/28 IV 0848 Acetaminophen/ 1 TAB ONCE ONE 07/29 0730 DC 07/29 Butalbital/Caffeine PO 07/29 0731 0813 Acetaminophen/ 1 TAB ONCE ONE 07/28 1415 DC 07/28 Butalbital/Caffeine PO 07/28 1416 1422 Chlorhexidine 1 GM .STK-MED ONE 07/28 1335 DC Gluconate TOP 07/28 1336 Epinephrine 1 MG .STK-MED ONE 07/28 1335 DC SC 07/28 1336 Melatonin 5 MG AT BEDTIME 07/28 220 DC 07/28 PO 2109 Pantoprazole Sodium 40 MG Q12 07/29 2200 AC IV Pantoprazole Sodium 40 MG 1200 07/29 1200 AC IV 07/29 1201 Pantoprazole Sodium 40 MG Q12 07/29 1000 DC IV Pantoprazole Sodium 40 MG BID 07/28 220 DC IV Pantoprazole Sodium 40 MG Q8 07/28 2200 DC 07/29 IV 0527 Pantoprazole Sodium 40 MG DAILY 07/27 1745 DC 07/28 IV 1039 Ramelteon 8 MG AT BEDTIME 07/29 220 AC PO Ramelteon 8 MG ONCE ONE 07/28 2215 DC 07/28 PO 07/28 2216 2219 Sodium Chloride 10 ML .STK-MED ONE 07/28 1335 DC IV 07/28 1336 Venlafaxine HCl 75 MG DAILY 07/28 1000 AC 07/29 PO 0813 Results Pertinent Lab Results: Laboratory Tests 07/29 07/29 0628 0220 Hematology CBC w Diff NO MAN DIFF REQ NO MAN DIFF REQ WBC (4.8 - 10.8 /CUMM) 5.9 7.7 RBC (4.20 - 5.40 /CUMM) 2.67 L 2.73 L Hgb (12.0 - 16.0 G/DL) 7.9 L 7.9 L Hct (37 - 47 %) 23.5 L 24.2 L MCV (81.0 - 99.0 FL) 88.1 88.8 MCH (27.0 - 31.0 PG) 29.7 29.1 RDW (11.5 - 14.5 %) 14.4 14.5 Plt Count (130 - 400 /CUMM) 324 353 MPV (7.4 - 10.4 FL) 8.7 8.6 Gran % (42.2 - 75.2 %) 58.3 52.7 Lymphocytes % (20.5 - 51.1 %) 30.7 35.3 Monocytes % (1.7 - 9.3 %) 7.9 8.3 Eosinophils % (0 - 5 %) 2.5 3.1 Basophils % (0.0 - 2.0 %) 0.6 0.6 Absolute Granulocytes (1.4 - 6.5 /CUMM) 3.4 4.1 Absolute Lymphocytes (1.2 - 3.4 /CUMM) 1.8 2.7 Absolute Monocytes (0.10 - 0.60 /CUMM) 0.5 0.6 Absolute Eosinophils (0.0 - 0.7 /CUMM) 0.1 0.2 Absolute Basophils (0.0 - 0.2 /CUMM) 0 0 PUBS MCHC (33.0 - 37.0 G/DL) 33.7 32.7 L 07/28 07/28 1945 1434 Hematology CBC w Diff NO MAN DIFF REQ NO MAN DIFF REQ WBC (4.8 - 10.8 /CUMM) 8.2 13.9 H RBC (4.20 - 5.40 /CUMM) 2.79 L 3.02 L Hgb (12.0 - 16.0 G/DL) 8.0 L 8.8 L Hct (37 - 47 %) 24.9 L 26.5 L MCV (81.0 - 99.0 FL) 89.2 87.8 MCH (27.0 - 31.0 PG) 28.7 29.3 RDW (11.5 - 14.5 %) 14.1 14.0 Plt Count (130 - 400 /CUMM) 349 402 H MPV (7.4 - 10.4 FL) 9.1 7.9 Gran % (42.2 - 75.2 %) 70.5 81.2 H Lymphocytes % (20.5 - 51.1 %) 22.9 12.2 L Monocytes % (1.7 - 9.3 %) 5.1 5.9 Eosinophils % (0 - 5 %) 1.1 0.6 Basophils % (0.0 - 2.0 %) 0.4 0.1 Absolute Granulocytes (1.4 - 6.5 /CUMM) 5.8 11.3 H Absolute Lymphocytes (1.2 - 3.4 /CUMM) 1.9 1.7 Absolute Monocytes (0.10 - 0.60 /CUMM) 0.4 0.8 H Absolute Eosinophils (0.0 - 0.7 /CUMM) 0.1 0.1 Absolute Basophils (0.0 - 0.2 /CUMM) 0 0 PUBS MCHC (33.0 - 37.0 G/DL) 32.2 L 33.3 07/28 07/27 0553 2248 Chemistry Sodium (137 - 145 mmol/L) 141 Potassium (3.5 - 5.1 mmol/L) 4.2 Chloride (98 - 107 mmol/L) 103 Carbon Dioxide (22 - 30 mmol/L) 26 Anion Gap (5 - 16) 12 BUN (7 - 17 mg/dL) 22 H Creatinine (0.5 - 1.0 mg/dL) 0.7 Estimated GFR (>60 ml/min) > 60 BUN/Creatinine Ratio (7 - 25 %) 31.4 H Troponin I (< 0.11 ng/ml) < 0.01 Hematology CBC w Diff NO MAN DIFF REQ NO MAN DIFF REQ WBC (4.8 - 10.8 /CUMM) 10.1 9.5 RBC (4.20 - 5.40 /CUMM) 3.10 L 2.96 L Hgb (12.0 - 16.0 G/DL) 9.0 L 8.7 L Hct (37 - 47 %) 27.5 L 26.0 L MCV (81.0 - 99.0 FL) 88.8 87.9 MCH (27.0 - 31.0 PG) 29.2 29.5 RDW (11.5 - 14.5 %) 13.7 13.9 Plt Count (130 - 400 /CUMM) 437 H 376 MPV (7.4 - 10.4 FL) 8.5 8.6 Gran % (42.2 - 75.2 %) 53.8 71.5 Lymphocytes % (20.5 - 51.1 %) 36.2 20.8 Monocytes % (1.7 - 9.3 %) 7.2 6.1 Eosinophils % (0 - 5 %) 2.4 1.2 Basophils % (0.0 - 2.0 %) 0.4 0.4 Absolute Granulocytes (1.4 - 6.5 /CUMM) 5.4 6.8 H Absolute Lymphocytes (1.2 - 3.4 /CUMM) 3.7 H 2.0 Absolute Monocytes (0.10 - 0.60 /CUMM) 0.7 H 0.6 Absolute Eosinophils (0.0 - 0.7 /CUMM) 0.2 0.1 Absolute Basophils (0.0 - 0.2 /CUMM) 0 0 PUBS MCHC (33.0 - 37.0 G/DL) 32.9 L 33.6 Toxicology Serum Alcohol (<10 MG/DL) < 10.0 07/27 07/27 1659 1422 Chemistry Troponin I (< 0.11 ng/ml) < 0.01 Urines Urine Color (YEL,AMB,STR) YEL Urine Clarity (CLEAR) CLEAR Urine pH (5.0 - 8.0) 6.0 Ur Specific [place] (1.001 - 1.035) 1.015 Urine Protein (NEG,<30 MG/DL) NEG Urine Ketones (NEG) NEG Urine Nitrite (NEG) NEG Urine Bilirubin (NEG) NEG Urine Urobilinogen (0.1 - 1.0 EU/dl) 0.2 Ur Leukocyte Esterase (NEG) NEG Ur Microscopic EXAM NOT REQUIRED Urine Hemoglobin (NEG) NEG Urine Glucose (N MG/DL) NEG 07/27 1110 Chemistry Sodium (137 - 145 mmol/L) 141 Potassium (3.5 - 5.1 mmol/L) 4.4 Chloride (98 - 107 mmol/L) 104 Carbon Dioxide (22 - 30 mmol/L) 24 Anion Gap (5 - 16) 13 BUN (7 - 17 mg/dL) 21 H Creatinine (0.5 - 1.0 mg/dL) 0.7 Estimated GFR (>60 ml/min) > 60 BUN/Creatinine Ratio (7 - 25 %) 30.0 H Glucose (65 - 99 mg/dL) 103 H Calcium (8.4 - 10.2 mg/dL) 9.6 Total Bilirubin (0.2 - 1.3 mg/dL) 0.3 AST (14 - 36 U/L) 37 H ALT (9 - 52 U/L) 63 H Alkaline Phosphatase (<127 U/L) 75 Troponin I (< 0.11 ng/ml) < 0.01 Total Protein (6.3 - 8.2 g/dL) 6.5 Albumin (3.5 - 5.0 g/dL) 4.0 Globulin (1.9 - 4.2 gm/dL) 2.5 Albumin/Globulin Ratio (1.1 - 2.2 %) 1.6 Coagulation D-Dimer High Sensitivty (0 - 243 ng/ml) < 200 Hematology CBC w Diff NO MAN DIFF REQ WBC (4.8 - 10.8 /CUMM) 6.1 RBC (4.20 - 5.40 /CUMM) 3.22 L Hgb (12.0 - 16.0 G/DL) 9.5 L Hct (37 - 47 %) 28.2 L MCV (81.0 - 99.0 FL) 87.7 MCH (27.0 - 31.0 PG) 29.5 RDW (11.5 - 14.5 %) 13.2 Plt Count (130 - 400 /CUMM) 390 MPV (7.4 - 10.4 FL) 8.6 Gran % (42.2 - 75.2 %) 59.8 Lymphocytes % (20.5 - 51.1 %) 29.4 Monocytes % (1.7 - 9.3 %) 7.8 Eosinophils % (0 - 5 %) 2.6 Basophils % (0.0 - 2.0 %) 0.4 Absolute Granulocytes (1.4 - 6.5 /CUMM) 3.7 Absolute Lymphocytes (1.2 - 3.4 /CUMM) 1.8 Absolute Monocytes (0.10 - 0.60 /CUMM) 0.5 Absolute Eosinophils (0.0 - 0.7 /CUMM) 0.2 Absolute Basophils (0.0 - 0.2 /CUMM) 0 PUBS MCHC (33.0 - 37.0 G/DL) 33.7
--- NOTE | 2017-07-29 10:01 | PN- Student ---
Subjective Subjective: FOLLOW UP NOTE :ULCER,ANEMIA,FATIGUE SUBJECTIVE: is a 67/f with a past medical history of hypertention who presents with fatigue and shortness of breath. She reports that she did not sleep well and has been having headaches which are responsive to Fiorocept.Patient underwent an upper endoscopy yesterday and reports no complications with the procedure. ROS: HEENT:PERRLA,NO JAUNDICE,HEADACHES,NO SCALP TENDERLESS OR FACIAL PAIN CVS: No palpitations or chest pain RESP:NO SOB GI:Negative :Negative MSK:Negative Objective Objective: Vitals : T 97.7 Pulse:71 RR 18 BP 126/74 O2 stat:97 P.E. Gen: Alert,oriented x3,coorperative HEENT: PERRLA CVS:Normal S1/S2, regular rate and rhythm Resp:Lungs clear on ascultation GI:soft,non tender MEDS. Acetaminophen 650 MG Q6P PRN 07/27 1645 DC 07/28 PO 0357 Acetaminophen 1,000 MG Q6P PRN 07/27 1645 AC 07/28 IV 0848 Acetaminophen/ 1 TAB ONCE ONE 07/29 0730 UNVr Butalbital/Caffeine PO 07/29 0731 Acetaminophen/ 1 TAB ONCE ONE 07/28 1415 DC 07/28 Butalbital/Caffeine PO 07/28 1416 1422 Chlorhexidine 1 GM .STK-MED ONE 07/28 1335 DC Gluconate TOP 07/28 1336 Epinephrine 1 MG .STK-MED ONE 07/28 1335 DC SC 07/28 1336 Melatonin 5 MG AT BEDTIME 07/28 2199 DC 07/28 PO 2109 Pantoprazole Sodium 40 MG Q12 07/29 1000 UNVr IV Pantoprazole Sodium 40 MG BID 07/28 2199 DC IV Pantoprazole Sodium 40 MG Q8 07/28 220 DC 07/29 IV 0527 Pantoprazole Sodium 40 MG DAILY 07/27 1745 DC 07/28 IV 1039 Ramelteon 8 MG AT BEDTIME 07/29 2199 UNVr PO Ramelteon 8 MG ONCE ONE 07/28 2215 DC 07/28 PO 07/28 221 2219 Sodium Chloride 10 ML .STK-MED ONE 07/28 1335 DC IV 07/28 1336 Venlafaxine HCl 75 MG DAILY 07/28 1000 AC 07/28 PO 1039 Results Results: Laboratory Tests 07/29/17 0628: CBC w Diff NO MAN DIFF REQ, RBC 2.67 L, MCV 88.1, MCH 29.7, RDW 14.4, MPV 8.7, Gran % 58.3, Lymphocytes % 30.7, Monocytes % 7.9, Eosinophils % 2.5, Basophils % 0.6, Absolute Granulocytes 3.4, Absolute Lymphocytes 1.8, Absolute Monocytes 0.5 , Absolute Eosinophils 0.1, Absolute Basophils 0, PUBS MCHC 33.7 07/29/17 0220: CBC w Diff NO MAN DIFF REQ, RBC 2.73 L, MCV 88.8, MCH 29.1, RDW 14.5, MPV 8.6, Gran % 52.7, Lymphocytes % 35.3, Monocytes % 8.3, Eosinophils % 3.1, Basophils % 0.6, Absolute Granulocytes 4.1, Absolute Lymphocytes 2.7, Absolute Monocytes 0.6 , Absolute Eosinophils 0.2, Absolute Basophils 0, PUBS MCHC 32.7 L 07/28/17 1945: CBC w Diff NO MAN DIFF REQ, RBC 2.79 L, MCV 89.2, MCH 28.7, RDW 14.1, MPV 9.1, Gran % 70.5, Lymphocytes % 22.9, Monocytes % 5.1, Eosinophils % 1.1, Basophils % 0.4, Absolute Granulocytes 5.8, Absolute Lymphocytes 1.9, Absolute Monocytes 0.4 , Absolute Eosinophils 0.1, Absolute Basophils 0, PUBS MCHC 32.2 L 07/28/17 1434: CBC w Diff NO MAN DIFF REQ, RBC 3.02 L, MCV 87.8, MCH 29.3, RDW 14.0, MPV 7.9, Gran % 81.2 H, Lymphocytes % 12.2 L, Monocytes % 5.9, Eosinophils % 0.6, Basophils % 0.1, Absolute Granulocytes 11.3 H, Absolute Lymphocytes 1.7, Absolute Monocytes 0.8 H, Absolute Eosinophils 0.1, Absolute Basophils 0, PUBS MCHC 33.3 07/28/17 0553: Anion Gap 12, Estimated GFR > 60, BUN/Creatinine Ratio 31.4 H, CBC w Diff NO MAN DIFF REQ, RBC 3.10 L, MCV 88.8, MCH 29.2, RDW 13.7, MPV 8.5, Gran % 53.8, Lymphocytes % 36.2, Monocytes % 7.2, Eosinophils % 2.4, Basophils % 0.4, Absolute Granulocytes 5.4, Absolute Lymphocytes 3.7 H, Absolute Monocytes 0.7 H, Absolute Eosinophils 0.2, Absolute Basophils 0, PUBS MCHC 32.9 L, Serum Alcohol < 10.0 07/27/17 2248: Troponin I < 0.01, CBC w Diff NO MAN DIFF REQ, RBC 2.96 L, MCV 87.9, MCH 29.5, RDW 13.9, MPV 8.6, Gran % 71.5, Lymphocytes % 20.8, Monocytes % 6.1, Eosinophils % 1.2, Basophils % 0.4, Absolute Granulocytes 6.8 H, Absolute Lymphocytes 2.0, Absolute Monocytes 0.6, Absolute Eosinophils 0.1, Absolute Basophils 0, PUBS MCHC 33.6 07/27/17 1659: Troponin I < 0.01 07/27/17 1422: Urine Color YEL, Urine Clarity CLEAR, Urine pH 6.0, Ur Specific [place] 1.015, Urine Protein NEG, Urine Ketones NEG, Urine Nitrite NEG, Urine Bilirubin NEG, Urine Urobilinogen 0.2, Ur Leukocyte Esterase NEG, Ur Microscopic EXAM NOT REQUIRED, Urine Hemoglobin NEG, Urine Glucose NEG 07/27/17 1110: Anion Gap 13, Estimated GFR > 60, BUN/Creatinine Ratio 30.0 H, Glucose 103 H, Calcium 9.6, Total Bilirubin 0.3, AST 37 H, ALT 63 H, Alkaline Phosphatase 75, Troponin I < 0.01, Total Protein 6.5, Albumin 4.0, Globulin 2.5, Albumin/ Globulin Ratio 1.6, D-Dimer High Sensitivty < 200, CBC w Diff NO MAN DIFF REQ, RBC 3.22 L, MCV 87.7, MCH 29.5, RDW 13.2, MPV 8.6, Gran % 59.8, Lymphocytes % 29.4, Monocytes % 7.8, Eosinophils % 2.6, Basophils % 0.4, Absolute Granulocytes 3.7, Absolute Lymphocytes 1.8, Absolute Monocytes 0.5, Absolute Eosinophils 0.2, Absolute Basophils 0, PUBS MCHC 33.7 Endoscopy results: Esophagus and Stomach Normal physiology, Antrum,gastric body,lesser curvature biopsied for H.pylori At Duodenal C sweep marked erythema,non obstructive stricture at D1. At posterior bulb a 8mm ulcer w/active bleed,biCap electrocaultry was performed,ulcer treated with complete control of bleeding. Assessment/Plan Assessment: Ms. Wilson is a 67-year-old female with past medical history of hypertension who presents with shortess of breath,fatigue and black tarry stool.On admission vitals were T 97.8, HR 118, RR 20, BP 121/80, pulse O2 90% on room air.To date labs for hemoglobin has worsened from an inital 9.5 to 7.9.Toponin I values were negative x3 and Chest Xray was negative for any acute process. Patients current complaints of headache are most likely due to dehydration and persistent anemia.Melena that was present on admission and may be attributed to the patients questionable alcohol intake and chronic nsaid use.Patient is admitted to telemetry with the following problems: 1. Duodenal ulcer with active bleeding 2. Dyspnea 3. Headache 4.Non specific T wave changes on EKG Plan: 1. Duodenal ulcer with active bleeding Upper endoscopy was performed and biCap electrocautery with complete control of bleeding solving the active bleeding.Etiology maybe EtOH vs PUD.Alcohol level was negligible on admission but based on patient's history and admissions it is possible.Patient also uses NSAIDs chronically which can also lead to PUD.Heamoglobin has been trending downward since admission due to active bleed. -Repeat daily CBC -Appreciate GI reccomendations -Patient education on alcohol abuse and nsaid abuse. -Patient is still on a clear liquid diet. 2. Dyspnea This was most likely attributed to the the patients anemia and decreased oxygenation.EKG and serial troponins 1 X3 were negative.Cardiology reccomends an outpatient ECHO and Stress Test and that no more telemetry is needed. -Appreciate cardiology recommendations -Patient can now be transferred to [facility] 3. Headache Patient has been reporting headaches which she previously treated with Excedrin ,has been treated and responsive to Fiorocept.Patient was advised to reduce NSAID use.Headaches can be attributed to patients anemia and previously ,active bleeding ulcer. -patient education on NSAID use -neurology outpatient consult. Diet:Clear Liquid Diet. DVT Prophylaxis:ALPS FULL CODE -
--- NOTE | 2017-07-29 15:03 | PN- Cardiology ---
Subjective Subjective: * No complaints of chest discomfort, lightheadedness or shortness of breath. * Patient remains anemic with endoscopy showing a bleeding duodenal ulcer Objective Vital Signs and I&Os Vital Signs Date Time Temp Pulse Resp B/P B/P Pulse O2 O2 Flow FiO2 Mean Ox Delivery Rate 07/29 0653 97.7 71 18 126/74 97 Room Air 07/28 2203 98.3 80 18 140/78 98 07/28 1732 97.4 100 20 150/80 96 07/28 1607 98.4 98 18 159/76 98 Room Air 07/28 1606 98.4 98 18 159/76 98 Room Air Intake & Output 07/29 1600 07/29 0800 07/29 0000 07/28 1600 07/28 0800 07/28 0000 Intake Total 200 480 100 Output Total 350 Balance -150 480 100 Intake, Oral 200 480 100 Number 0 Bowel Movements Output, Urine 350 Patient 190 lb 190 lb Weight Weight Reported by Patient Measurement Method Physical Exam: General: WD/WN male in NAD; alert and oriented x 3 Neck: no JVD, no carotid bruit Heart: RRR w/o murmur Lungs: clear bilaterally ABdomen: soft, obese, NT, +ve bowel sounds Extremities: no edema Assessment/Plan Assessment/Plan * This patient is being treated for a bleeding duodenal ulcer which was the source of her symptoms. Her heart rate is improved. * The patient's echo results are pending and her stress test can be done as an outpatient when more stable. Continue telemetry? No
[2017-07-29 16:04] VITALS: BP 130/78
[2017-07-29 22:11] VITALS: BP 130/78
[2017-07-30 05:46] VITALS: BP 110/66
--- NOTE | 2017-07-30 07:06 | PN- Housestaff ---
See Addendum Subjective Follow-up For: Duodenal ulcer Tele-Events Since Last Visit: not on tele Subjective: No overnight events. Didn't sleep well, hard to sleep in hospital. Also complaining about the pain of phlebotomy. No CP, SOB, abd pain, N/V/D or further BM. Review of Systems Constitutional: Reports: no symptoms. EENTM: Reports: no symptoms. Cardiovascular: Reports: no symptoms. Respiratory: Reports: no symptoms. Gastrointestinal: Reports: no symptoms. Genitourinary: Reports: no symptoms. Musculoskeletal: Reports: see HPI. Skin: Reports: no symptoms. Neurological/Psychological: Reports: no symptoms. Hematologic/Endocrine: Reports: no symptoms. Immunologic/Allergic: Reports: no symptoms. Objective Last 24 Hrs of Vital Signs/I&O Vital Signs Date Time Temp Pulse Resp B/P B/P Pulse O2 O2 Flow FiO2 Mean Ox Delivery Rate 07/30 0546 98.4 68 18 110/66 97 Room Air 07/29 2211 97.7 75 18 130/78 95 Room Air 07/29 1604 98.8 88 18 130/78 96 Room Air Intake & Output 07/30 0800 07/30 0000 07/29 1600 Intake Total 120 525 400 Output Total 550 Balance 120 525 -150 Intake, IV 20 5 Intake, Oral 100 520 400 Output, Urine 550 Physical Exam General Appearance: Alert, Oriented X3, Cooperative, No Acute Distress Cardiovascular: Regular Rate, Normal S1, Normal S2 Lungs: Clear to Auscultation Abdomen: Normal Bowel Sounds, Soft, No Tenderness Extremities: No Edema, Normal Pulses Current Medications: Current Medications Sig/Lori Start time Last Medication Dose Route Stop Time Status Admin Acetaminophen 650 MG ONCE ONE 07/29 2044 DC 07/29 PO 07/29 Acetaminophen 325 MG ONCE ONE 07/29 2030 CAN PO 07/29 203 Acetaminophen 1,000 MG Q6P PRN 07/27 1645 AC 07/28 IV 0848 Acetaminophen/ 1 TAB ONCE ONE 07/29 0730 DC 07/29 Butalbital/Caffeine PO 07/29 0731 0813 Melatonin 5 MG AT BEDTIME 07/28 2199 DC 07/28 PO 2109 Pantoprazole Sodium 40 MG Q12 07/29 220 DC IV Pantoprazole Sodium 40 MG 1200 07/29 1200 CAN IV 07/29 1201 Pantoprazole Sodium 40 MG 0600,1800 07/29 1130 AC 07/30 IV 0541 Pantoprazole Sodium 40 MG Q12 07/29 1000 DC IV Pantoprazole Sodium 40 MG Q8 07/28 2200 DC 07/29 IV 0527 Ramelteon 8 MG AT BEDTIME 07/29 2200 AC 07/29 PO 2134 Venlafaxine HCl 75 MG DAILY 07/28 1000 AC 07/29 PO 0813 Last 24 Hrs of Lab/Rolando Results Last 24 Hrs of Labs/Mics: Laboratory Tests 07/29/17 1200: CBC w Diff Cancelled, WBC Cancelled, RBC Cancelled, Hgb Cancelled, Hct Cancelled , MCV Cancelled, MCH Cancelled, RDW Cancelled, Plt Count Cancelled, MPV Cancelled, PUBS MCHC Cancelled Assessment/Plan Assessment: Ms. Wilson is a 67-year-old female with past medical history of hypertension who presents with fatigue and shortness of breath. On presentation, vital signs were T 97.8, HR 118, RR 20, BP 121/80, satting 90% on room air. Laboratories worsened in for white blood cells 6.1, hemoglobin 9.5, MCV 67.7, BUN 21, creatinine 0.7, calcium 9.6, TB 0.3, AST 37, ALT 63, alkaline phosphatase 75, troponin less than 0.01, tender negative, UA negative. Checks x- ray was negative for any acute processes. She'll be admitted to telemetry and treated for the following problem: 1. Duodenal ulcer with active bleeding 2. Dyspnea 3. Headache #Duodenal ulcer with active bleeding: Endoscopy revealed a bleeding duodenal ulcer. Etiology may be EtOH vs PUD. Alcohol level at admission was negative. However, I discussed the patient reducing her alcohol intake and avoiding NSAIDs. Hemoglobin has been stable. -Regular diet -IV pantoprazole for 72 hours (discharge Thursday if stable) -Appreciate GI recommendations -CBC every morning #Dyspnea: Patient was presenting with shortness of breath. This is most likely related to her anemia. EKG and troponins 3 were negative. Cardiology is recommending outpatient stress test. No further telemetry needed. -Appreciate cardiology recommendations -Patient can now be transferred to [facility] #Headache: Patient has been complaining of headaches. She has a history of headaches for a few usually takes Excedrin. This has responded well to Fioricet. She was told to avoid NSAIDs in the future. She should seek a referral to a neurologist as an outpatient after discharge. -Outpatient neurology referral #Chronic medical problems: -Continue home venlafaxine -Hold lisinopril DVT prophylaxis with Alps Clear liquid diet Full code Problem List: 1. Duodenal ulcer Pain Ratin Pain Location: no pain Pain Goal: Remain pain free Pain Plan: see a/p Tomorrow's Labs & Rationales: cbc
[2017-07-30 08:11] LABS: ABSOLUTE BASOPHIL COUNT 0 /CUMM (0.0-0.2); ABSOLUTE EOSINOPHIL COUNT 0.2 /CUMM (0.0-0.7); ABSOLUTE GRANULOCYTE CT 3.1 /CUMM (1.4-6.5); ABSOLUTE LYMPH COUNT 2.3 /CUMM (1.2-3.4); ABSOLUTE MONOCYTE COUNT 0.5 /CUMM (0.10-0.60); BASOPHIL % 0.4 % (0.0-2.0); EOSINOPHIL % 3.8 % (0-5); GRANULOCYTE % 50.3 % (42.2-75.2); HEMATOCRIT 25.2 % (37-47); MEAN CORPUSCULAR HGB 29.3 PG (27.0-31.0); MEAN CORPUSCULAR HGB CONC 33.2 G/DL (33.0-37.0); MEAN CORPUSCULAR VOLUME 88.4 FL (81.0-99.0); MEAN PLATELET VOLUME 8.5 FL (7.4-10.4); PLATELET COUNT 384 /CUMM (130-400); RBC DISTRIBUTION WIDTH 14.6 % (11.5-14.5); RED BLOOD CELL CT 2.85 /CUMM (4.20-5.40); WHITE BLOOD CELL COUNT 6.2 /CUMM (4.8-10.8)
--- NOTE | 2017-07-30 08:22 | ECHOCARDIOGRAM REPORT ---
BRAD ANDERSON Age: 67 : 1950 Gender: F Exam Date: 07/29/2017 11:28 Exam Location: [address] [facility] Ht (in): 67 Wt (lb): 190 BSA: 2.04 BP: 129 / 63 Ordering Physician: Joelle Alejandra MD Referring Physician: Joelle Alejandra MD Technologist: Shon Calhoun [facility] Room Number: 180-2 Indications: Chest Pain Rhythm: Sinus Technical Quality: sinus FINDINGS Left Ventricle Normal left ventricular size, wall thickness and systolic function with no obvious regional wall motion abnormalities. Normal left ventricular diastolic filling pattern for age. The ejection fraction is visually estimated at 70%. Right Ventricle The right ventricle is normal in size and function. Right Atrium The right atrium is normal in size. Left Atrium The left atrium is normal in size. The interatrial septum is intact. Mitral Valve The mitral valve is normal in structure and function. There is mild mitral regurgitation. Aortic Valve Structurally normal aortic valve without significant sclerosis or stenosis. There is no aortic regurgitation. Tricuspid Valve The tricuspid valve is normal in structure and function. There is mild to moderate tricuspid regurgitation. Pulmonary artery systolic pressure is normal. Pulmonic Valve Structurally normal pulmonic valve. There is no pulmonic regurgitation. Pericardium Normal pericardium without effusion. No pleural effusion. Great Vessels Normal aortic root dimension. The aortic arch and great vessels are well seen and are normal. CONCLUSIONS 1. Normal EF of 70%. 2. Mild mitral regurgitation. 3. Mild to moderate tricuspid regurgitation. Channing Aguilar M.D. (Electronically Signed) Final Date: 30 July 2017 08:21 MEASUREMENTS (Male / Female) Normal Values 2D ECHO LV Diastolic Diameter PLAX 5.0 cm 4.2 - 5.9 / 3.9 - 5.3 cm LV Systolic Diameter PLAX 2.7 cm 2.1 - 4.0 cm LV Fractional Shortening PLAX 46.0 % 25 - 46 % LV Ejection Fraction 2D Teich 77.2 % IVS Diastolic Thickness 1.0 cm LVPW Diastolic Thickness 1.0 cm LV Relative Wall Thickness 0.4 RV Internal Dim ED PLAX 2.7 cm 1.9 - 3.8 cm LVOT Diameter 1.8 cm Aortic Root Diameter 2.3 cm LA Systolic Diameter LX 3.2 cm 3.0 - 4.0 / 2.7 - 3.8 cm Ascending Aorta Diameter 3.6 cm DOPPLER AV Peak Velocity 166.0 cm/s AV Peak Gradient 11.0 mmHg AV Mean Velocity 100.0 cm/s AV Mean Gradient 5.0 mmHg AV Velocity Time Integral 36.1 cm LVOT Peak Velocity 92.5 cm/s LVOT Peak Gradient 3.4 mmHg LVOT Mean Velocity 56.0 cm/s LVOT Mean Gradient 1.0 mmHg LVOT Velocity Time Integral 20.5 cm LVOT Stroke Volume 52.2 cm AV Area Cont Eq vti 1.4 cm AV Area Cont Eq pk 1.4 cm MV Peak Velocity 93.4 cm/s MV Peak Gradient 3.5 mmHg MV Mean Velocity 61.5 cm/s MV Mean Gradient 2.0 mmHg Mitral E Point Velocity 91.3 cm/s Mitral A Point Velocity 57.8 cm/s Mitral E to A Ratio 1.6 MV PHT Velocity 101.0 cm/s MV Deceleration [place] 388.0 cm/s MV Pressure Half Time 78.1 ms MV Area PHT 2.8 cm MV Deceleration Time 250.0 ms MR Peak Velocity 550.0 cm/s MR Peak Gradient 121.0 mmHg TR Peak Velocity 271.0 cm/s TR Peak Gradient 29.4 mmHg Right Atrial Pressure 10.0 mmHg Pulmonary Artery Systolic Pressu 39.4 mmHg Right Ventricular Systolic Press 39.4 mmHg PV Peak Velocity 102.0 cm/s PV Peak Gradient 4.2 mmHg PV Mean Velocity 70.6 cm/s PV Mean Gradient 2.0 mmHg PV Velocity Time Integral 19.1 cm LV E' Lateral Velocity 14.1 cm/s Mitral E to LV E' Lateral Ratio 6.5 LV E' Septal Velocity 11.2 cm/s Mitral E to LV E' Septal Ratio 8.2
--- NOTE | 2017-07-30 08:41 | Discharge Summary ---
Visit Information Visit Dates Admission Date: 07/28/17 Discharge Date: 07/31/17 Hospital Course Course Attending Physician: Chinyere WOODWARD,Yana [place] Primary Care Physician: Christine WOODWARD,Danial [place] Hospital Course: Ms. Wilson is a 67-year-old female with past medical history of hypertension who presents with fatigue and shortness of breath. On presentation, vital signs were T 97.8, HR 118, RR 20, BP 121/80, satting 90% on room air. Laboratories worsened in for white blood cells 6.1, hemoglobin 9.5, MCV 67.7, BUN 21, creatinine 0.7, calcium 9.6, TB 0.3, AST 37, ALT 63, alkaline phosphatase 75, troponin less than 0.01, tender negative, UA negative. Checks x- ray was negative for any acute processes. She was admitted to telemetry and treated for the following problem: 1. Duodenal ulcer with active bleeding 2. Dyspnea secondary to anemia 3. Headache #Duodenal ulcer with active bleeding: Patient presented with significant anemia and history of black tarry stools. Endoscopy revealed Duodenal ulcer with active oozing at duodenal C-sweep. 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 Etiology may be EtOH vs PUD. Alcohol level at admission was negative. However, patient mentions that she had 1-2 glasses of wine a night. I discussed with the patient reducing her alcohol intake and avoiding NSAIDs. Hemoglobin was stable and she remained hemodynamically stable as well. She did not require any transfusions. She was treated with 72 hours of IV pantoprazole and her diet was advanced as tolerated. She should continue to take the omeprazole and follow up with GI. #Dyspnea secondary to anemia: Patient presented with complaints of shortness of breath. This is most likely related to her anemia. EKG and troponins 3 were negative. TTE revealed normal EF 70%. Cardiology is recommending outpatient stress test. She was initially monitored on telemetry. She should follow-up with cardiology regarding outpatient cardiac catheterization. #Headache: Patient had been complaining of headaches. She has a history of headaches for which she usually takes Excedrin. This has responded well to Fioricet. She was told to avoid NSAIDs in the future. She should follow-up with a neurologist as an outpatient after discharge. #Chronic medical problems: Venlafaxine was continued. Lisinopril was held for normal blood pressure. She should follow up with PCPto have her BP checked. Allergies: Coded Allergies: epinephrine (Intermediate, HEART RACES 07/27/17) Disposition Summary Disposition Principal Diagnosis: 1. Duodenal ulcer with active bleeding Additional Diagnosis: 2. Dyspnea secondary to anemia 3. Headache Discharge Disposition: home or self care Discharge Instructions General Discharge Information Code Status: Full Code Patient's Diet: Avoid EtOH and NSAIDs. Patient's Activity: As tolerated Follow-Up Instructions/Appts: Please take all medications as directed. Please avoid all alcohol and NSAIDs medications. Please follow-up with your primary care doctor. Please follow-up with neurology as well for her headaches. Medications at Discharge Discharge Medications: Stop taking the following medications: Lisinopril (Lisinopril) 40 MG TABLET ORAL DAILY Qty = 90 Omeprazole Magnesium (Prilosec Otc) 20 MG TABLET.DR ORAL DAILY Continue taking these medications: Venlafaxine HCl (Venlafaxine HCl ER) 75 MG CAP.ER.24H 1 Capsule ORAL DAILY Qty = 90 Start taking the following new medications: Omeprazole (Omeprazole) 40 MG CAPSULE.DR 1 Capsule ORAL TWICE DAILY Qty = 60 No Refills Copies To: Christine WOODWARD,Danial [place]; David WOODWARD,Charu Aguilar MD PHD,Channing [place]
--- NOTE | 2017-07-30 13:30 | PN- Student ---
Subjective Subjective: Sujective: is a 67/f with a past medical history of hypertention who presents with fatigue and shortness of breath. No overnight events.Patient feels well this morning but stil has some trouble sleeping.She has transitioned from a clear liquid diet to solid foods and has no complaints or complications.She is able to get up and walk and carrout her daily activities unaided.Reports no fatigue or headaches this morning. ROS. HEENT: Negative CVS:no palpitations Resp:no chest pain or shortness of breath Gi: Negative :Negative MSK: Negative Neuro: No headaches Objective Objective: Vitals :T:98.4 P=68 RR=18 BP 110/66 Pulse O2:97% at room air P.E. General: alert,oriented x3 ,in no acute distress HEENT:Negative CVS:Normal S1 and S2,rate and rhythm regular Resp:Clear to ascultation GI:Soft,non-tender with normal bowel sounds in all quadrants MSK:5/5 strength upper and lower extremities Results Results: Laboratory Tests 07/30/17 0714: CBC w Diff NO MAN DIFF REQ, RBC 2.85 L, MCV 88.4, MCH 29.3, RDW 14.6 H, MPV 8.5, Gran % 50.3, Lymphocytes % 37.8, Monocytes % 7.7, Eosinophils % 3.8, Basophils % 0.4, Absolute Granulocytes 3.1, Absolute Lymphocytes 2.3, Absolute Monocytes 0.5, Absolute Eosinophils 0.2, Absolute Basophils 0, PUBS MCHC 33.2 07/29/17 1200: CBC w Diff Cancelled, WBC Cancelled, RBC Cancelled, Hgb Cancelled, Hct Cancelled , MCV Cancelled, MCH Cancelled, RDW Cancelled, Plt Count Cancelled, MPV Cancelled, PUBS MCHC Cancelled 07/29/17 0628: CBC w Diff NO MAN DIFF REQ, RBC 2.67 L, MCV 88.1, MCH 29.7, RDW 14.4, MPV 8.7, Gran % 58.3, Lymphocytes % 30.7, Monocytes % 7.9, Eosinophils % 2.5, Basophils % 0.6, Absolute Granulocytes 3.4, Absolute Lymphocytes 1.8, Absolute Monocytes 0.5 , Absolute Eosinophils 0.1, Absolute Basophils 0, PUBS MCHC 33.7 01/10/18 0220: CBC w Diff NO MAN DIFF REQ, RBC 2.73 L, MCV 88.8, MCH 29.1, RDW 14.5, MPV 8.6, Gran % 52.7, Lymphocytes % 35.3, Monocytes % 8.3, Eosinophils % 3.1, Basophils % 0.6, Absolute Granulocytes 4.1, Absolute Lymphocytes 2.7, Absolute Monocytes 0.6 , Absolute Eosinophils 0.2, Absolute Basophils 0, PUBS MCHC 32.7 L 07/28/17 1945: CBC w Diff NO MAN DIFF REQ, RBC 2.79 L, MCV 89.2, MCH 28.7, RDW 14.1, MPV 9.1, Gran % 70.5, Lymphocytes % 22.9, Monocytes % 5.1, Eosinophils % 1.1, Basophils % 0.4, Absolute Granulocytes 5.8, Absolute Lymphocytes 1.9, Absolute Monocytes 0.4 , Absolute Eosinophils 0.1, Absolute Basophils 0, PUBS MCHC 32.2 L 07/28/17 1434: CBC w Diff NO MAN DIFF REQ, RBC 3.02 L, MCV 87.8, MCH 29.3, RDW 14.0, MPV 7.9, Gran % 81.2 H, Lymphocytes % 12.2 L, Monocytes % 5.9, Eosinophils % 0.6, Basophils % 0.1, Absolute Granulocytes 11.3 H, Absolute Lymphocytes 1.7, Absolute Monocytes 0.8 H, Absolute Eosinophils 0.1, Absolute Basophils 0, PUBS MCHC 33.3 07/28/17 0553: Anion Gap 12, Estimated GFR > 60, BUN/Creatinine Ratio 31.4 H, CBC w Diff NO MAN DIFF REQ, RBC 3.10 L, MCV 88.8, MCH 29.2, RDW 13.7, MPV 8.5, Gran % 53.8, Lymphocytes % 36.2, Monocytes % 7.2, Eosinophils % 2.4, Basophils % 0.4, Absolute Granulocytes 5.4, Absolute Lymphocytes 3.7 H, Absolute Monocytes 0.7 H, Absolute Eosinophils 0.2, Absolute Basophils 0, PUBS MCHC 32.9 L, Serum Alcohol < 10.0 07/27/17 2248: Troponin I < 0.01, CBC w Diff NO MAN DIFF REQ, RBC 2.96 L, MCV 87.9, MCH 29.5, RDW 13.9, MPV 8.6, Gran % 71.5, Lymphocytes % 20.8, Monocytes % 6.1, Eosinophils % 1.2, Basophils % 0.4, Absolute Granulocytes 6.8 H, Absolute Lymphocytes 2.0, Absolute Monocytes 0.6, Absolute Eosinophils 0.1, Absolute Basophils 0, PUBS MCHC 33.6 07/27/17 1659: Troponin I < 0.01 07/27/17 1422: Urine Color YEL, Urine Clarity CLEAR, Urine pH 6.0, Ur Specific [place] 1.015, Urine Protein NEG, Urine Ketones NEG, Urine Nitrite NEG, Urine Bilirubin NEG, Urine Urobilinogen 0.2, Ur Leukocyte Esterase NEG, Ur Microscopic EXAM NOT REQUIRED, Urine Hemoglobin NEG, Urine Glucose NEG Path Report: Mild acute + chronic atrophic antral gastritis w/ focal fibrosis. Giemsa stain is negative for helicobacter organisms Negative for intestinal metaplasia Assessment/Plan Assessment: Ms. Wilson is a 67-year-old female with past medical history of hypertension who presents with shortess of breath,fatigue and black tarry stool.On admission vitals were T 97.8, HR 118, RR 20, BP 121/80, pulse O2 90% on room air.To date labs for hemoglobin has worsened from an inital 9.5 to 7.9.Toponin I values were negative x3 and Chest Xray was negative for any acute process. Patients current complaints of headache are most likely due to dehydration and persistent anemia.Melena that was present on admission and may be attributed to the patients questionable alcohol intake and chronic nsaid use.Patient is admitted to telemetry with the following problems: 1. Duodenal ulcer with active bleeding 2. Dyspnea 3. Headache 4.Non specific T wave changes on EKG Plan: 1. Duodenal ulcer with active bleeding Upper endoscopy was performed and biCap electrocautery with complete control of bleeding solving the active bleeding.Etiology maybe EtOH vs PUD.Alcohol level was negligible on admission but based on patient's history and admissions it is possible.Patient also uses NSAIDs chronically which can also lead to PUD.Heamoglobin has been trending downward since admission due to active bleed. -Repeat daily CBC -Appreciate GI reccomendations -Patient education on alcohol abuse and nsaid abuse. -Patient has resumed regular diet 2. Dyspnea This was most likely attributed to the the patients anemia and decreased oxygenation.EKG and serial troponins 1 X3 were negative.Cardiology reccomends an outpatient ECHO and Stress Test and that no more telemetry is needed. -Appreciate cardiology recommendations -Patient can now be transferred to [facility] 3. Headache Patient has been reporting headaches which she previously treated with Excedrin ,has been treated and responsive to Fiorocept.Patient was advised to reduce NSAID use.Headaches can be attributed to patients anemia and previously ,active bleeding ulcer. -patient education on NSAID use -neurology outpatient consult. DietRegular DVT Prophylaxis:ALPS FULL CODE
[2017-07-30 16:58] VITALS: BP 126/66
--- NOTE | 2017-07-30 21:59 | PN- Cardiology ---
Subjective Subjective: * Patient feels well. * H/H remains low Objective Vital Signs and I&Os Vital Signs Date Time Temp Pulse Resp B/P B/P Pulse O2 O2 Flow FiO2 Mean Ox Delivery Rate 07/30 1658 98.8 81 20 126/66 98 07/30 0800 Room Air 07/30 0546 98.4 68 18 110/66 97 Room Air 07/29 2211 97.7 75 18 130/78 95 Room Air Intake & Output 07/30 1600 07/30 0800 07/30 0000 07/29 1600 07/29 0800 07/29 0000 Intake Total 720 120 525 400 200 480 Output Total 550 350 Balance 720 120 525 -150 -150 480 Intake, IV 20 5 Intake, Oral 720 100 520 400 200 480 Number 0 Bowel Movements Output, Urine 550 350 Patient 190 lb Weight Weight Reported by Patient Measurement Method Physical Exam: General: WD/WN male in NAD; alert and oriented x 3 Neck: no JVD, no carotid bruit Heart: RRR w/o murmur Lungs: clear bilaterally ABdomen: soft, obese, NT, +ve bowel sounds Extremities: no edema Assessment/Plan Assessment/Plan * This patient is being treated for a bleeding duodenal ulcer which was the source of her symptoms and is on an IV PPI. Her heart rate is improved. * The patient's echo shows a normal EF with mild MR and mild to moderate TR. Her stress test can be done as an outpatient when more stable. Continue telemetry? No
[2017-07-30 23:10] VITALS: BP 122/78
[2017-07-31 06:51] VITALS: BP 106/64
--- NOTE | 2017-07-31 07:05 | PN- Housestaff ---
See Addendum Subjective Follow-up For: duodenal ulcer Tele-Events Since Last Visit: not ontele Subjective: No overnight events. Complaining of a headache again, but no CP, SOB, abd pain, N/V/D. She has not had a BM since admission. Review of Systems Constitutional: Reports: no symptoms. EENTM: Reports: no symptoms. Cardiovascular: Reports: no symptoms. Respiratory: Reports: no symptoms. Gastrointestinal: Reports: no symptoms. Genitourinary: Reports: no symptoms. Musculoskeletal: Reports: no symptoms. Skin: Reports: no symptoms. Neurological/Psychological: Reports: see HPI. Hematologic/Endocrine: Reports: no symptoms. Immunologic/Allergic: Reports: no symptoms. Objective Last 24 Hrs of Vital Signs/I&O Vital Signs Date Time Temp Pulse Resp B/P B/P Pulse O2 O2 Flow FiO2 Mean Ox Delivery Rate 07/31 0651 98.1 74 18 106/64 96 Room Air 07/30 2310 98.6 83 20 122/78 99 Room Air 07/30 1658 98.8 81 20 126/66 98 07/30 0800 Room Air Intake & Output 07/31 0800 07/31 0000 07/30 1600 Intake Total 360 720 Output Total Balance 360 720 Intake, IV 120 Intake, Oral 240 720 Physical Exam General Appearance: Alert, Oriented X3, Cooperative, No Acute Distress Skin: No Rashes Cardiovascular: Regular Rate, Normal S1, Normal S2 Lungs: Clear to Auscultation Abdomen: Normal Bowel Sounds, Soft, No Tenderness Extremities: No Edema Current Medications: Current Medications Sig/Lori Start time Last Medication Dose Route Stop Time Status Admin Acetaminophen 1,000 MG Q6P PRN 07/27 1645 AC 07/30 IV 2052 Pantoprazole Sodium 40 MG 0600,1800 07/29 1130 AC 07/31 IV 0557 Ramelteon 8 MG AT BEDTIME 07/29 2199 AC 07/29 PO 2134 Venlafaxine HCl 75 MG DAILY 07/28 1000 AC 07/30 PO 0845 Zolpidem Tartrate 5 MG AT BEDTIME 07/30 2200 DC 07/30 PO 07/30 220 2100 Last 24 Hrs of Lab/Rolando Results Last 24 Hrs of Labs/Mics: Laboratory Tests 07/31/17 0647: CBC w Diff Pending, WBC Pending, RBC Pending, Hgb Pending, Hct Pending, MCV Pending, MCH Pending, RDW Pending, Plt Count Pending, MPV Pending, PUBS MCHC Pending 07/30/17 0714: CBC w Diff NO MAN DIFF REQ, RBC 2.85 L, MCV 88.4, MCH 29.3, RDW 14.6 H, MPV 8.5, Gran % 50.3, Lymphocytes % 37.8, Monocytes % 7.7, Eosinophils % 3.8, Basophils % 0.4, Absolute Granulocytes 3.1, Absolute Lymphocytes 2.3, Absolute Monocytes 0.5, Absolute Eosinophils 0.2, Absolute Basophils 0, PUBS MCHC 33.2 Assessment/Plan Assessment: Ms. Wilson is a 67-year-old female with past medical history of hypertension who presents with fatigue and shortness of breath. On presentation, vital signs were T 97.8, HR 118, RR 20, BP 121/80, satting 90% on room air. Laboratories worsened in for white blood cells 6.1, hemoglobin 9.5, MCV 67.7, BUN 21, creatinine 0.7, calcium 9.6, TB 0.3, AST 37, ALT 63, alkaline phosphatase 75, troponin less than 0.01, tender negative, UA negative. Checks x- ray was negative for any acute processes. She'll be admitted to telemetry and treated for the following problem: 1. Duodenal ulcer with active bleeding 2. Dyspnea 3. Headache #Duodenal ulcer with active bleeding: Endoscopy revealed a bleeding duodenal ulcer. Etiology may be EtOH vs PUD. Alcohol level at admission was negative. However, I discussed the patient reducing her alcohol intake and avoiding NSAIDs. Hemoglobin has been stable. -Regular diet -Start omeprazole per GI recs -Appreciate GI recommendations -CBC every morning #Dyspnea: Patient was presenting with shortness of breath. This is most likely related to her anemia. EKG and troponins 3 were negative. Cardiology is recommending outpatient stress test. No further telemetry needed. -Appreciate cardiology recommendations #Headache: Patient has been complaining of headaches. She has a history of headaches for a few usually takes Excedrin. This has responded well to Fioricet. She was told to avoid NSAIDs in the future. She should seek a referral to a neurologist as an outpatient after discharge. -Outpatient neurology referral #Chronic medical problems: -Continue home venlafaxine -Hold lisinopril DVT prophylaxis with Alps Clear liquid diet Full code Problem List: 1. Duodenal ulcer Pain Ratin Pain Location: no pain Pain Goal: Remain pain free Pain Plan: see a/p Tomorrow's Labs & Rationales: none
--- NOTE | 2017-07-31 07:07 | PN- Housestaff ---
Subjective Follow-up For: EtOH, afib Tele-Events Since Last Visit: Not on tele Subjective: No overnight events. He is ready for discharge, no complaints. Excited for mother's cooking. Review of Systems Constitutional: Reports: no symptoms. EENTM: Reports: no symptoms. Cardiovascular: Reports: no symptoms. Respiratory: Reports: no symptoms. Gastrointestinal: Reports: no symptoms. Genitourinary: Reports: no symptoms. Musculoskeletal: Reports: no symptoms. Skin: Reports: no symptoms. Neurological/Psychological: Reports: no symptoms. Hematologic/Endocrine: Reports: no symptoms. Immunologic/Allergic: Reports: no symptoms. Objective Last 24 Hrs of Vital Signs/I&O Vital Signs Date Time Temp Pulse Resp B/P B/P Pulse O2 O2 Flow FiO2 Mean Ox Delivery Rate 07/31 0651 98.1 74 18 106/64 96 Room Air 07/30 2310 98.6 83 20 122/78 99 Room Air 07/30 1658 98.8 81 20 126/66 98 07/30 0800 Room Air Intake & Output 07/31 0800 07/31 0000 07/30 1600 Intake Total 360 720 Output Total Balance 360 720 Intake, IV 120 Intake, Oral 240 720 Physical Exam General Appearance: Alert, Oriented X3, Cooperative, No Acute Distress Skin: No Rashes Cardiovascular: Regular Rate, Normal S1, Normal S2 Lungs: Clear to Auscultation Abdomen: Normal Bowel Sounds, Soft, No Tenderness Extremities: No Edema Current Medications: Current Medications Sig/Lori Start time Last Medication Dose Route Stop Time Status Admin Acetaminophen 1,000 MG Q6P PRN 07/27 1645 AC 07/30 IV 2052 Pantoprazole Sodium 40 MG 0600,1800 07/29 1130 AC 07/31 IV 0557 Ramelteon 8 MG AT BEDTIME 07/29 2200 AC 07/29 PO 2134 Venlafaxine HCl 75 MG DAILY 07/28 1000 AC 07/30 PO 0845 Zolpidem Tartrate 5 MG AT BEDTIME 07/30 2200 DC 07/30 PO 07/30 220 2100 Last 24 Hrs of Lab/Roladno Results Last 24 Hrs of Labs/Mics: Laboratory Tests 07/31/17 0647: CBC w Diff Pending, WBC Pending, RBC Pending, Hgb Pending, Hct Pending, MCV Pending, MCH Pending, RDW Pending, Plt Count Pending, MPV Pending, PUBS MCHC Pending 07/30/17 0714: CBC w Diff NO MAN DIFF REQ, RBC 2.85 L, MCV 88.4, MCH 29.3, RDW 14.6 H, MPV 8.5, Gran % 50.3, Lymphocytes % 37.8, Monocytes % 7.7, Eosinophils % 3.8, Basophils % 0.4, Absolute Granulocytes 3.1, Absolute Lymphocytes 2.3, Absolute Monocytes 0.5, Absolute Eosinophils 0.2, Absolute Basophils 0, PUBS MCHC 33.2 Assessment/Plan Assessment: Ms. Wilson is a 67-year-old female with past medical history of hypertension who presents with fatigue and shortness of breath. On presentation, vital signs were T 97.8, HR 118, RR 20, BP 121/80, satting 90% on room air. Laboratories worsened in for white blood cells 6.1, hemoglobin 9.5, MCV 67.7, BUN 21, creatinine 0.7, calcium 9.6, TB 0.3, AST 37, ALT 63, alkaline phosphatase 75, troponin less than 0.01, tender negative, UA negative. Checks x- ray was negative for any acute processes. She'll be admitted to telemetry and treated for the following problem: 1. Duodenal ulcer with active bleeding 2. Dyspnea 3. Headache #Duodenal ulcer with active bleeding: Endoscopy revealed a bleeding duodenal ulcer. Etiology may be EtOH vs PUD. Alcohol level at admission was negative. However, I discussed the patient reducing her alcohol intake and avoiding NSAIDs. Hemoglobin has been stable. -Regular diet -IV pantoprazole for 72 hours (discharge Thursday if stable) -Appreciate GI recommendations -CBC every morning #Dyspnea: Patient was presenting with shortness of breath. This is most likely related to her anemia. EKG and troponins 3 were negative. Cardiology is recommending outpatient stress test. No further telemetry needed. -Appreciate cardiology recommendations -Patient can now be transferred to [facility] #Headache: Patient has been complaining of headaches. She has a history of headaches for a few usually takes Excedrin. This has responded well to Fioricet. She was told to avoid NSAIDs in the future. She should seek a referral to a neurologist as an outpatient after discharge. -Outpatient neurology referral #Chronic medical problems: -Continue home venlafaxine -Hold lisinopril DVT prophylaxis with Alps Clear liquid diet Full code
--- NOTE | 2017-07-31 07:14 | PN- Housestaff ---
Subjective Follow-up For: CHF Tele-Events Since Last Visit: Afib, 60s Subjective: No overnight events. He has some irritation of the riley relieved by acetaminophen. He says his breathing is fine even with mild exertion, but worsens with more strenuous exercise. No CP, abd pain, or other issues. Review of Systems Constitutional: Reports: no symptoms. EENTM: Reports: no symptoms. Cardiovascular: Reports: no symptoms. Respiratory: Reports: see HPI. Gastrointestinal: Reports: no symptoms. Genitourinary: Reports: no symptoms. Musculoskeletal: Reports: no symptoms. Skin: Reports: no symptoms. Neurological/Psychological: Reports: no symptoms. Hematologic/Endocrine: Reports: no symptoms. Immunologic/Allergic: Reports: no symptoms. Objective Last 24 Hrs of Vital Signs/I&O Vital Signs Date Time Temp Pulse Resp B/P B/P Pulse O2 O2 Flow FiO2 Mean Ox Delivery Rate 07/31 0651 98.1 74 18 106/64 96 Room Air 07/30 2310 98.6 83 20 122/78 99 Room Air 07/30 1658 98.8 81 20 126/66 98 07/30 0800 Room Air Intake & Output 07/31 0800 07/31 0000 07/30 1600 Intake Total 360 720 Output Total Balance 360 720 Intake, IV 120 Intake, Oral 240 720 Physical Exam General Appearance: Alert, Oriented X3, Cooperative, No Acute Distress Cardiovascular: irregular Lungs: crackles bilaterrally Abdomen: Normal Bowel Sounds, Soft, No Tenderness Extremities: 2+ pitting edema bilaterally Current Medications: Current Medications Sig/Lori Start time Last Medication Dose Route Stop Time Status Admin Acetaminophen 1,000 MG Q6P PRN 07/27 1645 AC 07/30 IV 205 Pantoprazole Sodium 40 MG 0600,1800 07/29 1130 AC 07/31 IV 0557 Ramelteon 8 MG AT BEDTIME 07/29 2199 AC 07/29 PO 2134 Venlafaxine HCl 75 MG DAILY 07/28 1000 AC 07/30 PO 0845 Zolpidem Tartrate 5 MG AT BEDTIME 07/30 2200 DC 07/30 PO 07/30 2200 2100 Last 24 Hrs of Lab/Rolando Results Last 24 Hrs of Labs/Mics: Laboratory Tests 07/31/17 0647: CBC w Diff Pending, WBC Pending, RBC Pending, Hgb Pending, Hct Pending, MCV Pending, MCH Pending, RDW Pending, Plt Count Pending, MPV Pending, PUBS MCHC Pending 07/30/17 0714: CBC w Diff NO MAN DIFF REQ, RBC 2.85 L, MCV 88.4, MCH 29.3, RDW 14.6 H, MPV 8.5, Gran % 50.3, Lymphocytes % 37.8, Monocytes % 7.7, Eosinophils % 3.8, Basophils % 0.4, Absolute Granulocytes 3.1, Absolute Lymphocytes 2.3, Absolute Monocytes 0.5, Absolute Eosinophils 0.2, Absolute Basophils 0, PUBS MCHC 33.2 Assessment/Plan Assessment: Ms. Wilson is a 67-year-old female with past medical history of hypertension who presents with fatigue and shortness of breath. On presentation, vital signs were T 97.8, HR 118, RR 20, BP 121/80, satting 90% on room air. Laboratories worsened in for white blood cells 6.1, hemoglobin 9.5, MCV 67.7, BUN 21, creatinine 0.7, calcium 9.6, TB 0.3, AST 37, ALT 63, alkaline phosphatase 75, troponin less than 0.01, tender negative, UA negative. Checks x- ray was negative for any acute processes. She'll be admitted to telemetry and treated for the following problem: 1. Duodenal ulcer with active bleeding 2. Dyspnea 3. Headache #Duodenal ulcer with active bleeding: Endoscopy revealed a bleeding duodenal ulcer. Etiology may be EtOH vs PUD. Alcohol level at admission was negative. However, I discussed the patient reducing her alcohol intake and avoiding NSAIDs. Hemoglobin has been stable. -Regular diet -IV pantoprazole for 72 hours (discharge Thursday if stable) -Appreciate GI recommendations -CBC every morning #Dyspnea: Patient was presenting with shortness of breath. This is most likely related to her anemia. EKG and troponins 3 were negative. Cardiology is recommending outpatient stress test. No further telemetry needed. -Appreciate cardiology recommendations -Patient can now be transferred to [facility] #Headache: Patient has been complaining of headaches. She has a history of headaches for a few usually takes Excedrin. This has responded well to Fioricet. She was told to avoid NSAIDs in the future. She should seek a referral to a neurologist as an outpatient after discharge. -Outpatient neurology referral #Chronic medical problems: -Continue home venlafaxine -Hold lisinopril DVT prophylaxis with Alps Clear liquid diet Full code
--- NOTE | 2017-07-31 07:50 | Patient Discharge Instructions ---
Discharge Instructions General Discharge Information You were seen/treated for: Duodenal ulcer Watch for these problems: Fever, chest pain, shortness of breath, bleeding Special Instructions: Please take all medications as directed. Please follow-up with your primary care doctor. Please follow-up with neurology for her headaches. Please follow-up with your primary care doctor to determine whether he will need the blood pressure medication. Please follow-up with gastroenterology as well. Diet Continue normal diet: Yes Activity Full Activity/No Limits: Yes Acute Coronary Syndrome Inclusion Criteria At DC or during hospital stay patient has or had the following: ACS DIAGNOSIS No Discharge Core Measures Meds if any: Prescribed or Continued at Discharge Meds if any: NOT Prescribed or Continued at Discharge Congestive Heart Failure Inclusion Criteria At DC or during hospital stay patient has or had the following: CHF DIAGNOSIS No Discharge Core Measures Meds if any: Prescribed or Continued at Discharge Meds if any: NOT Prescribed or Continued at Discharge Cerebrovascular accident Inclusion Criteria At DC or during hospital stay patient has or had the following: CVA/TIA Diagnosis No Discharge Core Measures Meds if any: Prescribed or Continued at Discharge Meds if any: NOT Prescribed or Continued at Discharge Venous thromboembolism Inclusion Criteria VTE Diagnosis No VTE Type NONE VTE Confirmed by (Test) NONE Discharge Core Measures - Per Current guidelines, there needs to be overlap - treatment for the first 5 days of Warfarin therapy. - If discharged on Warfarin prior to 5 days of - overlap therapy, the patient will need to be - assessed for post discharge needs including - *Post discharge parental anticoagulation - *Warfarin and/or parental anticoagulation education - *Follow up date to check INR post discharge At least 5 days overlap therapy as Inpatient No Meds if any: Prescribed or Continued at Discharge Note: Overlap Therapy is Warfarin and Anticoagulant Meds if any: NOT Prescribed or Continued at Discharge
[2017-07-31 08:10] LABS: ABSOLUTE BASOPHIL COUNT 0 /CUMM (0.0-0.2); ABSOLUTE EOSINOPHIL COUNT 0.3 /CUMM (0.0-0.7); ABSOLUTE GRANULOCYTE CT 2.2 /CUMM (1.4-6.5); ABSOLUTE LYMPH COUNT 1.9 /CUMM (1.2-3.4); ABSOLUTE MONOCYTE COUNT 0.4 /CUMM (0.10-0.60); BASOPHIL % 0.6 % (0.0-2.0); EOSINOPHIL % 5.4 % (0-5); GRANULOCYTE % 46.3 % (42.2-75.2); HEMATOCRIT 23.5 % (37-47); MEAN CORPUSCULAR HGB 29.2 PG (27.0-31.0); MEAN CORPUSCULAR HGB CONC 32.7 G/DL (33.0-37.0); MEAN CORPUSCULAR VOLUME 89.4 FL (81.0-99.0); MEAN PLATELET VOLUME 8.5 FL (7.4-10.4); PLATELET COUNT 365 /CUMM (130-400); RBC DISTRIBUTION WIDTH 14.7 % (11.5-14.5); RED BLOOD CELL CT 2.62 /CUMM (4.20-5.40); WHITE BLOOD CELL COUNT 4.7 /CUMM (4.8-10.8)
[2017-07-31] MEDS ORDERED: OMEPRAZOLE40 M1 PO (13:22)
[2017-07-31 13:42] LABS: ABSOLUTE BASOPHIL COUNT 0 /CUMM (0.0-0.2); ABSOLUTE EOSINOPHIL COUNT 0.2 /CUMM (0.0-0.7); ABSOLUTE GRANULOCYTE CT 4.6 /CUMM (1.4-6.5); ABSOLUTE MONOCYTE COUNT 0.4 /CUMM (0.10-0.60); BASOPHIL % 0.4 % (0.0-2.0); MEAN PLATELET VOLUME 8.4 FL (7.4-10.4)
[2017-07-31 13:46] LABS: ABSOLUTE LYMPH COUNT 1.9 /CUMM (1.2-3.4); EOSINOPHIL % 2.7 % (0-5); GRANULOCYTE % 64.2 % (42.2-75.2); HEMATOCRIT 24.8 % (37-47); MEAN CORPUSCULAR HGB CONC 33.1 G/DL (33.0-37.0); MEAN CORPUSCULAR VOLUME 87.7 FL (81.0-99.0); PLATELET COUNT 403 /CUMM (130-400); RBC DISTRIBUTION WIDTH 14.2 % (11.5-14.5); RED BLOOD CELL CT 2.82 /CUMM (4.20-5.40)
[2017-07-31 13:47] LABS: WHITE BLOOD CELL COUNT 7.1 /CUMM (4.8-10.8)
[2017-07-31] MEDS ORDERED: BUTALB-ACETAMI1 EACH PO (14:02)
[2017-07-31 14:18] VITALS: BP 126/72
== END 2017-07-31 15:15 | DRG 378 ==
LOC: ERH 10:34 → ERHI 15:40 → ENRESERV 07-28 12:38 → CANRESERV 07-28 12:38 → ERHI 07-28 14:35 → 1NO 07-28 14:57 → ENRESERV 07-28 16:15 → ERHI 07-28 16:19 → ENTRNSPT 07-28 16:52 → CMPTRNSPT 07-28 17:30 → 1NO 07-28 17:30
PROVIDERS: Emergency Medicine; Hospitalist; Internal Medicine
PROC: 0W3P8ZZ Control Bleeding in Gastrointestinal Tract, Via Natural or Artificial Opening Endoscopic (ICD-10-PCS; principal; 2017-07-28)
PROC: 3E0G8GC Introduction of Other Therapeutic Substance into Upper GI, Via Natural or Artificial Opening Endoscopic (ICD-10-PCS; 2017-07-28)
DX: K26.0 Acute duodenal ulcer with hemorrhage (principal); D62 Acute posthemorrhagic anemia; I36.1 Nonrheumatic tricuspid (valve) insufficiency; I10 Essential (primary) hypertension; Z72.89 Other problems related to lifestyle; R51 Headache; K21.9 Gastro-esophageal reflux disease without esophagitis; Z82.49 Family history of ischemic heart disease and other diseases of the circulatory system; R94.31 Abnormal electrocardiogram [ECG] [EKG]; I34.0 Nonrheumatic mitral (valve) insufficiency; F10.20 Alcohol dependence, uncomplicated; K29.70 Gastritis, unspecified, without bleeding
CPT/HCPCS: 1NSP; 36415; 71046; 81003; 82436; 88305; 88312; 93005; 93010; 93306; G0480; J0131; J0171